=== PATIENT | female | born 1950 | race Caucasian/White ===

== ENCOUNTER → 2019-07-18 13:52 | Outpatient (CLI) | payer MEDICARE, OTHER, SELFPAY ==
[2019-07-18 14:11] LABS: RBC Urine None Seen (0-5/HPF); WBC Urine None Seen (0-5/HPF)
[2019-07-18 15:35] LABS: Appearance Urine UA CLEAR; Bilirubin Urine UA NEGATIVE (NEGATIVE); Color Urine UA YELLOW; Glucose Urine UA NEGATIVE (Negative); Ketones Urine UA NEGATIVE (NEGATIVE); Leukocyte Esterase Urine UA NEGATIVE (NEGATIVE); Nitrite Urine UA NEGATIVE (Negative); Occult Blood Urine UA NEGATIVE (Negative); Protein Urine UA NEGATIVE (Negative); Urobilinogen Urine UA 0.2 E.U./dL (0.2)
[2019-07-18 15:39] LABS: pH Urine UA 5.5 (4.5-8.0)
[2019-07-18 15:52] LABS: Bacteria Urine Occasional (0-1); Culture Indicated Urine Cult Not Indicated
== END ==
PROVIDERS: PCP Nurse Practitioner; Referring Provider Nurse Practitioner; Visit Provider Nurse Practitioner
DX: R32 Unspecified urinary incontinence (principal)
CPT/HCPCS: 81001

== ENCOUNTER → 2019-09-27 10:14 | Outpatient (CLI) | payer MEDICARE, OTHER, SELFPAY ==
[2019-09-27 11:03] LABS: Alanine Aminotransferase 12 IU/L (<35); Albumin 3.8 g/dL (3.5-5.0); Albumin Globulin Ratio 1.6 (1.0-2.8); Alkaline Phosphatase 50 U/L (38-126); Aspartate Aminotransferase 25 IU/L (14-36); BUN Creatinine Ratio 22.5 (6-22); Bilirubin Total 0.5 mg/dL (0.2-1.3); Blood Urea Nitrogen 20 mg/dL (7-17); Calcium 9.9 mg/dL (8.4-10.2); Carbon Dioxide 31 mmol/L (22-32); Chloride 104 mmol/L (98-107); Cholesterol 184 mg/dL (140-199); Estimated Glomerular Filt Rate > 60.0 mL/min (>60); Globulin 2.4 g/dL (1.7-4.1); Glucose 101 mg/dL (80-110); HDL Cholesterol 73 mg/dL (40-60); HEMOLYSIS < 15 (0-50); LDL Cholesterol Calculated 89 mg/dL (<100); Sodium 138 mmol/L (137-145); Total Protein 6.2 g/dL (6.3-8.2); Triglycerides 111 mg/dL (35-150)
[2019-09-27 11:31] LABS: Thyroid Stimulating Hormone 0.388 uIU/mL (0.47-4.68)
[2019-09-27 11:53] LABS: Hep C Virus Ab w/Reflex Quant NEGATIVE s/c (NEGATIVE)
== END ==
PROVIDERS: PCP Nurse Practitioner; Referring Provider Nurse Practitioner; Visit Provider Nurse Practitioner
DX: E03.9 Hypothyroidism, unspecified (principal); F03.90 Unspecified dementia, unspecified severity, without behavioral disturbance, psychotic disturbance, mood disturbance, and anxiety; F32.2 Major depressive disorder, single episode, severe without psychotic features; F41.9 Anxiety disorder, unspecified; I10 Essential (primary) hypertension; J45.909 Unspecified asthma, uncomplicated; N39.41 Urge incontinence; R35.0 Frequency of micturition; Z91.14 Patient's other noncompliance with medication regimen; Z11.59 Encounter for screening for other viral diseases; Z91.89 Other specified personal risk factors, not elsewhere classified
CPT/HCPCS: 36415; 80053; 80061; 84443; 86803

== ENCOUNTER → 2019-10-02 09:36 | Outpatient (ROUT) | payer MEDICARE, OTHER, SELFPAY ==
[2019-10-02 10:28] LABS: Alanine Aminotransferase 13 IU/L (<35); Albumin 3.8 g/dL (3.5-5.0); Albumin Globulin Ratio 1.5 (1.0-2.8); Alkaline Phosphatase 50 U/L (38-126); Aspartate Aminotransferase 33 IU/L (14-36); BUN Creatinine Ratio 18.4 (6-22); Bilirubin Total 0.6 mg/dL (0.2-1.3); Blood Urea Nitrogen 16 mg/dL (7-17); Calcium 9.7 mg/dL (8.4-10.2); Carbon Dioxide 30 mmol/L (22-32); Chloride 104 mmol/L (98-107); Cholesterol 192 mg/dL (140-199); Estimated Glomerular Filt Rate > 60.0 mL/min (>60); Globulin 2.5 g/dL (1.7-4.1); Glucose 93 mg/dL (80-110); HDL Cholesterol 69 mg/dL (40-60); HEMOLYSIS < 15 (0-50); LDL Cholesterol Calculated 102 mg/dL (<100); Potassium 3.7 mmol/L (3.4-5.1); Sodium 139 mmol/L (137-145); Total Protein 6.3 g/dL (6.3-8.2); Triglycerides 104 mg/dL (35-150)
[2019-10-02 11:09] LABS: Thyroid Stimulating Hormone 0.541 uIU/mL (0.47-4.68)
== END ==
PROVIDERS: PCP Nurse Practitioner; Visit Provider Nurse Practitioner
DX: F03.90 Unspecified dementia, unspecified severity, without behavioral disturbance, psychotic disturbance, mood disturbance, and anxiety (principal); E03.9 Hypothyroidism, unspecified; F32.2 Major depressive disorder, single episode, severe without psychotic features; F41.9 Anxiety disorder, unspecified; J45.909 Unspecified asthma, uncomplicated; I10 Essential (primary) hypertension; N39.41 Urge incontinence; R35.0 Frequency of micturition; Z91.14 Patient's other noncompliance with medication regimen; Z91.89 Other specified personal risk factors, not elsewhere classified
CPT/HCPCS: 36415; 80053; 80061; 84443

== ENCOUNTER → 2020-01-01 07:53 | Outpatient (ROUT) | payer MEDICARE, OTHER, SELFPAY ==
[2020-01-01 09:32] LABS: Thyroid Stimulating Hormone 1.58 uIU/mL (0.47-4.68)
== END ==
PROVIDERS: PCP Nurse Practitioner; Visit Provider Nurse Practitioner
DX: E03.9 Hypothyroidism, unspecified (principal); F32.2 Major depressive disorder, single episode, severe without psychotic features; F41.9 Anxiety disorder, unspecified
CPT/HCPCS: 36415; 84443

== ENCOUNTER 2020-09-21 10:55 | Emergency (ER) | payer MEDICARE, OTHER, SELFPAY ==
[2020-09-21] VITALS (9 sets, daily range): BP systolic 122–184; BP diastolic 61–80; PULSE 64–86; RESP 13–16; TEMP 36.5; O2SAT 88–100
--- NOTE | 2020-09-21 11:15 | DI.CT.S_ITS ---
PROCEDURE: CT HEAD/BRAIN WO CON INDICATIONS: confusion TECHNIQUE: Noncontrast 4.5 mm thick angled axial sections acquired from the foramen magnum to the vertex, with coronal and sagittal reformats. For radiation dose reduction, the following was used: automated exposure control, adjustment of mA and/or kV according to patient size. COMPARISON: None. FINDINGS: Image quality: Excellent. CSF spaces: Basal cisterns are patent. No extra-axial fluid collections. The ventricles are symmetric in size and shape. Brain: No intracranial bleeds or masses. There is cerebral volume loss for age, with resultant ventricular and sulcal prominence. There are periventricular and deep white matter chronic small vessel ischemic changes. There is intracranial internal carotid artery atherosclerosis. Skull and face: Calvarium and visualized facial bones appear intact, without suspicious lesions. Sinuses: Visualized sinuses and mastoids are clear. IMPRESSION: Noncontrast head CT within normal limits for age. If there is strong clinical suspicion for an acute stroke, please consider a brain MRI for further evaluation, as it is more sensitive (assuming that there is no contraindication to MRI). Dictated by: Adalid Carolina M.D. on 09/21/2020 at 10:44 Approved by: Adalid Carolina M.D. on 09/21/2020 at 10:45
[2020-09-21] MEDS: SODIUM CHLORIDE 0.9% 1,000 ML 150 ML IV (11:32)
[2020-09-21 11:35] LABS: Add Manual Diff / Slide Review NO; Basophils Absolute Auto 100 /uL (0-100); Basophils Percent Auto 1.2 % (0-2); Eosinophils Absolute Auto 100 /uL (0-450); Eosinophils Percent Auto 1.5 % (2-4); Hematocrit 38.9 % (36-46); Lymphocytes Absolute Auto 1900 /uL (1100-4500); Lymphocytes Percent Auto 31.5 % (25-40); Mean Corpuscular HGB Conc 33.5 % (30-36); Mean Corpuscular Hemoglobin 30.3 PG (26-34); Mean Corpuscular Volume 90.6 fL (80-100); Monocytes Absolute Auto 500 /uL (0-900); Monocytes Percent Auto 8.5 % (3-14); Neutrophils Absolute Auto 3400 /uL (1500-7000); Neutrophils Percent Auto 57.3 % (50-75); Platelet Count 179 X10^3/uL (150-400); Red Cell Distribution Width 12.8 % (11.6-14.8); White Blood Cell Count 5.9 X10^3/uL (4.5-11.0)
[2020-09-21 11:44] LABS: Lactate (Lactic Acid) 2.1 mmol/L (0.7-2.1)
[2020-09-21 11:46] LABS: Acetaminophen 12 ug/mL (10-30); Alanine Aminotransferase 12 IU/L (<35); Albumin 3.6 g/dL (3.5-5.0); Albumin Globulin Ratio 1.4 (1.0-2.8); Alkaline Phosphatase 38 U/L (38-126); Aspartate Aminotransferase 26 IU/L (14-36); BUN Creatinine Ratio 17.6 (6-22); Bilirubin Total 0.4 mg/dL (0.2-1.3); Blood Urea Nitrogen 18 mg/dL (7-17); Calcium 9.6 mg/dL (8.4-10.2); Carbon Dioxide 29 mmol/L (22-32); Chloride 104 mmol/L (98-107); Creatine Kinase 129 U/L (30-135); Estimated Glomerular Filt Rate 53.7 mL/min (>60); Ethanol (ETOH) < 10 mg/dL; Globulin 2.5 g/dL (1.7-4.1); Glucose 118 mg/dL (80-110); HEMOLYSIS < 15 (0-50); Potassium 3.9 mmol/L (3.4-5.1); Salicylate < 1.0 mg/dL (<20); Sodium 138 mmol/L (137-145); Total Protein 6.1 g/dL (6.3-8.2)
[2020-09-21 11:57] LABS: Troponin I < 0.012 ng/mL (0.01-0.034)
[2020-09-21 12:00] LABS: CKMB % Relative Index 0.3 % (1.5-5.0); Creatine Kinase MB 0.36 ng/mL (<2.37)
--- NOTE | 2020-09-21 12:00 | PC.NURSE ---
Pt has severe dementia so it is difficult to evaluate the pt's symptoms. Pt states there is no changes or abnormal symptoms that the pt is reporting.
[2020-09-21 12:02] LABS: Procalcitonin 0.06 ng/mL (<0.5); Prolactin 26.3 ng/mL (3.0-18.6)
[2020-09-21 12:16] LABS: Thyroid Stimulating Hormone 1.24 uIU/mL (0.47-4.68)
[2020-09-21 12:29] LABS: RBC Urine None Seen (0-5/HPF)
[2020-09-21 12:35] LABS: Appearance Urine UA CLOUDY; Bilirubin Urine UA NEGATIVE (NEGATIVE); Color Urine UA YELLOW; Glucose Urine UA NEGATIVE (Negative); Ketones Urine UA NEGATIVE (NEGATIVE); Leukocyte Esterase Urine UA 1+ (NEGATIVE); Nitrite Urine UA NEGATIVE (Negative); Occult Blood Urine UA NEGATIVE (Negative); Protein Urine UA 1+ (Negative); Urobilinogen Urine UA 0.2 E.U./dL (0.2)
[2020-09-21 12:36] LABS: UR Morphine/Opiate cutoff 300 Negative (Negative); Ur Creatinine Normal (Normal); Ur Specific Gravity Normal (Normal); Urine Amphetamines Negative (Negative); Urine Barbiturates Negative (Negative); Urine Benzodiazepines Negative (Negative); Urine Cocaine Negative (Negative); Urine MDMA Negative (Negative); Urine Methadone Negative (Negative); Urine Methamphetamines Negative (Negative); Urine Oxycodone Negative (Negative); Urine Phencyclidine Negative (Negative); Urine Tetrahydrocannabinol Negative (Negative); Urine Tricyclic Antidepressant Negative (Negative); Urine pH Normal (Normal)
[2020-09-21 12:37] LABS: pH Urine UA 7.5 (4.5-8.0)
[2020-09-21 12:43] LABS: Bacteria Urine Many (>30); Culture Indicated Urine Specimen Cultured; WBC Urine 5-10/HPF (0-5/HPF)
--- NOTE | 2020-09-21 12:46 | ED.DIZZY ---
HPI - Dizziness General Chief Complaint: Dizziness Stated Complaint: Hypotension, confused, dizziness Time Seen by Provider: 09/21/20 11:13 Source: EMS Mode of arrival: EMS History of Present Illness HPI Narrative: 69-year-old female with history of anxiety and dementia presenting with increased confusion and possibly dizziness from [facility]. It sounds as though symptoms started around 9:00 a.m.. Patient is awake and alert and able to follow commands and answer some questions. He is having some mild chest discomfort. She denies headache numbness or tingling. She has no shortness of breath. No abdominal pain nausea vomiting. Patient is overall a difficult historian. She is currently afebrile. Staff states not at baseline. Related Data Home Medications Medication Instructions Recorded Confirmed acetaminophen 325 mg capsule 650 mg PO Q4H PRN 01/23/20 01/23/20 magnesium hydroxide 400 mg/5 mL 30 ml PO DAILY PRN ml 01/23/20 01/23/20 oral suspension (Milk of Magnesia) Previous Rx's Medication Instructions Recorded albuterol sulfate 90 mcg/actuation 2 puff INHALATION Q4-6H PRN #6.7 10/30/19 aerosol inhaler (Ventolin HFA) gram aspirin 81 mg tablet,delayed 81 mg PO DAILY #90 tab 10/30/19 release (Adult Low Dose Aspirin) calcium carbonate 600 mg calcium 600 mg PO DAILY #180 tab 10/30/19 (1,500 mg) tablet (Calcium) cholecalciferol (vitamin D3) 25 25 mcg PO DAILY #180 cap 10/30/19 mcg (1,000 unit) capsule lisinopril 2.5 mg tablet 2.5 mg PO DAILY #90 tab 10/30/19 loratadine 10 mg tablet 10 mg PO DAILY #90 tab 10/30/19 (Allerclear) memantine 10 mg tablet 10 mg PO BID #180 tab 10/30/19 omeprazole 20 mg capsule,delayed 20 mg PO DAILY #90 cap 10/30/19 release oxybutynin chloride 5 mg 5 mg PO DAILY #90 tab 10/30/19 tablet,extended release 24 hr donepezil 10 mg tablet 10 mg PO DAILY #90 tab 01/03/20 acetaminophen 325 mg capsule 650 mg PO DAILY #180 cap 01/23/20 levothyroxine 75 mcg tablet 75 mcg PO DAILY #90 tab 01/31/20 escitalopram oxalate 20 mg tablet 20 mg PO DAILY #30 tab 09/05/20 trazodone 50 mg tablet 50 mg PO DAILY #90 tab 09/10/20 nitrofurantoin 100 mg PO Q12H 5 Days #10 cap 09/21/20 monohydrate/macrocrystals 100 mg capsule (Macrobid) Allergies Allergy/AdvReac Type Severity Reaction Status Date / Time Penicillins Allergy Mild Verified 09/21/20 11:03 Review of Systems Constitutional Constitutional: Denies fever(s) ENT Ears, Nose, Mouth, and Throat: Reports dizziness Cardiovascular Cardiovascular: Reports chest pain, Denies edema and Denies leg edema Respiratory Respiratory: Denies cough Gastrointestinal Gastrointestinal: Denies abdominal pain, Denies nausea and Denies vomiting Musculoskeletal Musculoskeletal: Denies deformity Integumentary/Breasts Skin/Breast: Denies rash Neurologic Neurologic: Reports confusion, Reports dizziness and Reports memory loss Psychiatric Psychiatric: Reports confusion and Reports memory loss Patient History Medical History (Updated 09/21/20 @ 13:08 by Kaylene Odell DO) Advanced care planning/counseling discussion Allergies Anxiety Asthma Carpal tunnel syndrome Cataracts, bilateral CPAP (continuous positive airway pressure) dependence Dementia (~2016) Depression Encounter for HCV screening test for high risk patient Facial numbness FH: GRAY-BSO (total abdominal hysterectomy and bilateral salpingo-oophorectomy) GERD (gastroesophageal reflux disease) Headache History of urinary incontinence Hypothyroidism 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 Mild diastolic dysfunction Noncompliance with CPAP treatment Restless leg syndrome Retinal detachment (~2014) Sleep apnea TIA (transient ischemic attack) (~2014) Urinary frequency Weight loss observed on examination Surgical History H/O eye surgery Family History Father History of heart disease Hypertension Mother History of heart disease Hypertension Sister Diabetes mellitus Hypothyroidism Social History Smoking Status: Never smoker Smoking Status: Never smoker alcohol intake frequency: holidays/special occasions only Substance Use Type: does not use Exam Initial Vital Signs Initial Vital Signs: Vital Signs Temperature 97.7 F 09/21/20 11:03 Pulse Rate 85 09/21/20 11:03 Respiratory Rate 13 09/21/20 11:03 Blood Pressure 122/61 09/21/20 11:03 Pulse Oximetry 96 07/24/21 11:03 GENERAL: Alert pleasantly confused 69-year-old female HEENT: Head atraumatic,EOMI, pupils reactive, face symmetric, moist mucous membranes CARDIOVASCULAR: Regular rate and rhythm without murmurs, rubs or gallops. RESPIRATORY: Breath sounds equal bilaterally, no wheezes rales or rhonchi. ABDOMEN: Soft, nontender. Normoactive bowel sounds all 4 quadrants. No guarding or rebound. EXTREMITIES: Normal range of motion, no clubbing or edema. Neurovascularly intact NEUROLOGICAL: Alert and oriented x1. Print Operator strength equal bilaterally good [id number] lower extremity strength equal SKIN: Warm, dry, no laceration, no petechiae, no rashes or lesions. Course Orders Ordered: ED Orders 09/21/20 11:09 Acetaminophen Stat Complete Blood Count AUTO DIFF Stat Comprehensive Metabolic Panel Stat Ethanol (ETOH) Stat Lactate (Lactic Acid) Stat Procalcitonin Stat Prolactin Stat Salicylate Stat Thyroid Stimulating Hormone Stat Troponin & CK Cardiac Panel Stat 09/21/20 11:14 EKG-12 Lead Stat 09/21/20 11:15 CT head/brain wo con Stat 09/21/20 11:49 Urinalysis and Microscopic Stat Urine Culture Stat Urine Drug Screen, Rapid Stat 09/21/20 12:10 Blood Culture Stat Discontinued Medications Sodium Chloride (Normal Saline 0.9%) 1,000 mls @ 150 mls/hr IV CONT CHAUNCEY Last Infusion: 09/21/20 13:46 Dose: 0 mls/hr Documented by: Admin: 09/21/20 11:32 Dose: 150 mls/hr Documented by: MARIAN Nitrofurantoin Macrocrystals (Nitrofurantoin Er 100 Mg Capsule) 100 mg PO NOW ONE Stop: 09/21/20 13:10 Last Admin: 09/21/20 13:20 Dose: 100 mg Documented by: [email or web address] Vital Signs Vital signs: Vital Signs - 8 hr 09/21/20 11:03 09/21/20 11:04 09/21/20 11:30 Temperature 97.7 F Pulse Rate 85 86 71 Respiratory Rate 13 Blood Pressure 122/61 Pulse Oximetry 96 100 99 09/21/20 11:49 09/21/20 12:00 09/21/20 12:30 Temperature Pulse Rate 74 64 64 Respiratory Rate 14 Blood Pressure 176/72 H 160/70 H 176/80 H Pulse Oximetry 99 98 98 09/21/20 13:00 09/21/20 13:31 09/21/20 13:34 Temperature Pulse Rate 68 72 Respiratory Rate 16 14 Blood Pressure 184/74 H 154/72 H Pulse Oximetry 99 88 L 96 MDM - Dizziness Lab Data Result diagrams: 09/21/20 11:09 09/21/20 11:09 Labs: Lab Results 09/21/20 09/21/20 09/21/20 Range/Units 11:09 11:09 11:09 WBC 5.9 (4.5-11.0) X10^3/uL RBC 4.30 (4.0-5.2) X10^6/uL Hgb 13.0 (12.0-16.0) g/dL Hct 38.9 (36-46) % MCV 90.6 (80-100) fL MCH 30.3 (26-34) PG MCHC 33.5 (30-36) % RDW 12.8 (11.6-14.8) % Plt Count 179 (150-400) X10^3/uL Neut % (Auto) 57.3 (50-75) % Lymph % (Auto) 31.5 (25-40) % Campbell % (Auto) 8.5 (3-14) % Eos % (Auto) 1.5 L (2-4) % Baso % (Auto) 1.2 (0-2) % Neut # (Auto) 3400 (7680-4839) /uL Lymph # (Auto) 1900 (6022-4028) /uL Campbell # (Auto) 500 (0-900) /uL Eos # (Auto) 100 (0-450) /uL Baso # (Auto) 100 (0-100) /uL Sodium 138 (137-145) mmol/L Potassium 3.9 (3.4-5.1) mmol/L Chloride 104 (98-107) mmol/L Carbon Dioxide 29 (22-32) mmol/L BUN 18 H (7-17) mg/dL Creatinine 1.02 (0.52-1.04) mg/dL Estimated GFR 53.7 L (>60) mL/min BUN/Creatinine Ratio 17.6 (6-22) Glucose 118 H (80-110) mg/dL Lactate 2.1 (0.7-2.1) mmol/L Calcium 9.6 (8.4-10.2) mg/dL Total Bilirubin 0.4 (0.2-1.3) mg/dL AST 26 (14-36) IU/L ALT 12 (<35) IU/L Alkaline Phosphatase 38 (38-126) U/L Total Creatine Kinase 129 (30-135) U/L CK-MB (CK-2) 0.36 (<2.37) ng/mL CK-MB (CK-2) Rel Index 0.3 L (1.5-5.0) % Troponin I < 0.012 (0.01-0.034) ng/mL Total Protein 6.1 L (6.3-8.2) g/dL Albumin 3.6 (3.5-5.0) g/dL Globulin 2.5 (1.7-4.1) g/dL Albumin/Globulin Ratio 1.4 (1.0-2.8) Procalcitonin 0.06 (<0.5) ng/mL TSH (0.47-4.68) uIU/mL Prolactin 26.3 H (3.0-18.6) ng/mL Urine Color Urine Appearance Urine pH (4.5-8.0) Ur Specific [place] (1.000-1.035) Urine Protein (Negative) Urine Glucose (UA) (Negative) g/dL Urine Ketones (NEGATIVE) Urine Occult Blood (Negative) Urine Nitrate (Negative) Urine Bilirubin (NEGATIVE) Urine Urobilinogen (0.2) E.U./dL Ur Leukocyte Esterase (NEGATIVE) Urine RBC (0-5/HPF) Urine WBC (0-5/HPF) Urine Bacteria (None) Ur Culture Indicated? Salicylates < 1.0 (<20) mg/dL U Opiates 300ng/mL cut (Negative) Ur Oxycodone Screen (Negative) Urine Methadone Screen (Negative) Acetaminophen 12 (10-30) ug/mL Ur Barbiturates Screen (Negative) U Tricyclic Antidepress (Negative) Ur Phencyclidine Scrn (Negative) Ur Amphetamines Screen (Negative) U Methamphetamines Scrn (Negative) Ur MDMA Scrn (Ecstasy) (Negative) U Benzodiazepines Scrn (Negative) Urine Cocaine Screen (Negative) U Marijuana (THC) Screen (Negative) Ethyl Alcohol < 10 ( - 10) mg/dL 09/21/20 09/21/20 09/21/20 Range/Units 11:09 11:49 11:49 WBC (4.5-11.0) X10^3/uL RBC (4.0-5.2) X10^6/uL Hgb (12.0-16.0) g/dL Hct (36-46) % MCV (80-100) fL MCH (26-34) PG MCHC (30-36) % RDW (11.6-14.8) % Plt Count (150-400) X10^3/uL Neut % (Auto) (50-75) % Lymph % (Auto) (25-40) % Campbell % (Auto) (3-14) % Eos % (Auto) (2-4) % Baso % (Auto) (0-2) % Neut # (Auto) (9173-6187) /uL Lymph # (Auto) (3437-5956) /uL Campbell # (Auto) (0-900) /uL Eos # (Auto) (0-450) /uL Baso # (Auto) (0-100) /uL Sodium (137-145) mmol/L Potassium (3.4-5.1) mmol/L Chloride (98-107) mmol/L Carbon Dioxide (22-32) mmol/L BUN (7-17) mg/dL Creatinine (0.52-1.04) mg/dL Estimated GFR (>60) mL/min BUN/Creatinine Ratio (6-22) Glucose (80-110) mg/dL Lactate (0.7-2.1) mmol/L Calcium (8.4-10.2) mg/dL Total Bilirubin (0.2-1.3) mg/dL AST (14-36) IU/L ALT (<35) IU/L Alkaline Phosphatase (38-126) U/L Total Creatine Kinase (30-135) U/L CK-MB (CK-2) (<2.37) ng/mL CK-MB (CK-2) Rel Index (1.5-5.0) % Troponin I (0.01-0.034) ng/mL Total Protein (6.3-8.2) g/dL Albumin (3.5-5.0) g/dL Globulin (1.7-4.1) g/dL Albumin/Globulin Ratio (1.0-2.8) Procalcitonin (<0.5) ng/mL TSH 1.24 (0.47-4.68) uIU/mL Prolactin (3.0-18.6) ng/mL Urine Color Yellow Urine Appearance Cloudy Urine pH 7.5 (4.5-8.0) Ur Specific [place] 1.010 (1.000-1.035) Urine Protein 1+ H (Negative) Urine Glucose (UA) Negative (Negative) g/dL Urine Ketones Negative (NEGATIVE) Urine Occult Blood Negative (Negative) Urine Nitrate Negative (Negative) Urine Bilirubin Negative (NEGATIVE) Urine Urobilinogen 0.2 (0.2) E.U./dL Ur Leukocyte Esterase 1+ H (NEGATIVE) Urine RBC None seen (0-5/HPF) Urine WBC 5-10/hpf H (0-5/HPF) Urine Bacteria Many (>30) H (None) Ur Culture Indicated? Specimen cultured Salicylates (<20) mg/dL U Opiates 300ng/mL cut Negative (Negative) Ur Oxycodone Screen Negative (Negative) Urine Methadone Screen Negative (Negative) Acetaminophen (10-30) ug/mL Ur Barbiturates Screen Negative (Negative) U Tricyclic Antidepress Negative (Negative) Ur Phencyclidine Scrn Negative (Negative) Ur Amphetamines Screen Negative (Negative) U Methamphetamines Scrn Negative (Negative) Ur MDMA Scrn (Ecstasy) Negative (Negative) U Benzodiazepines Scrn Negative (Negative) Urine Cocaine Screen Negative (Negative) U Marijuana (THC) Screen Negative (Negative) Ethyl Alcohol ( - 10) mg/dL Point of Care Testing Glucose POC 118 Urine Dip Bedside Urine Glucose Negative Bedside Urine Bilirubin - Negative Bedside Urine Ketone - Negative Urine Specific [place] 1.015 Bedside Urine Occult Blood - Negative Bedside Urine pH 7.0 Bedside Urine Protein + 30 Bedside Urine Urobilinogen - Negative Bedside Urine Nitrite - Negative Bedside Urine Leukocytes + [address] scan - head: Radiologist's Impression: PROCEDURE: CT HEAD/BRAIN WO CON INDICATIONS: confusion TECHNIQUE: Noncontrast 4.5 mm thick angled axial sections acquired from the foramen magnum to the vertex, with coronal and sagittal reformats. For radiation dose reduction, the following was used: automated exposure control, adjustment of mA and/or kV according to patient size. COMPARISON: None. FINDINGS: Image quality: Excellent. CSF spaces: Basal cisterns are patent. No extra-axial fluid collections. The ventricles are symmetric in size and shape. Brain: No intracranial bleeds or masses. There is cerebral volume loss for age, with resultant ventricular and sulcal prominence. There are periventricular and deep white matter chronic small vessel ischemic changes. There is intracranial internal carotid artery atherosclerosis. Skull and face: Calvarium and visualized facial bones appear intact, without suspicious lesions. Sinuses: Visualized sinuses and mastoids are clear. IMPRESSION: Noncontrast head CT within normal limits for age. If there is strong clinical suspicion for an acute stroke, please consider a brain MRI for further evaluation, as it is more sensitive (assuming that there is no contraindication to MRI). Dictated by: Adalid Carolina M.D. on 09/21/2020 at 10:44 ECG Data Interpretation: Normal sinus rhythm rate 79 OR interval 146 QRS 80 QTC 450 baseline artifact noted no ST changes MDM Narrative Medical decision making narrative: Patient from my standpoint is neurologically intact. She has baseline confusion. Workup does confirm UTI. At this time she does not appear septic. She has no focal neurologic deficit. He ambulates in the ED without any difficulty Discharge Plan Departure Patient Disposition: Home Clinical Impression: Acute UTI Instructions: DI for Urinary Tract Infection (UTI) Activity Restrictions/Additional Instructions: *You have been diagnosed with UTI *What to do: Blood work and CT scan are overall reassuring. *Continue to take medications as directed Macrobid 100 mg twice a day for 5 days *Follow up with your primary care provider in 2-3 days *Return to ER if you should have increasing confusion, fever greater than 100.4, increased weakness, [or] any new, worsening or concerning symptoms Prescriptions: New nitrofurantoin monohyd/m-cryst [Macrobid] 100 mg capsule 100 mg PO Q12H 5 Days Qty: 10 RF: 0 No Action donepezil 10 mg tablet 10 mg PO DAILY Qty: 90 RF: 3 levothyroxine 75 mcg tablet 75 mcg PO DAILY Qty: 90 RF: 3 escitalopram oxalate 20 mg tablet 20 mg PO DAILY Qty: 30 RF: 0 trazodone 50 mg tablet 50 mg PO DAILY Qty: 90 RF: 3 acetaminophen 325 mg capsule 650 mg PO Q4H PRN (Reason: pain) RF: 0 magnesium hydroxide [Milk of Magnesia] 400 mg/5 mL suspension 30 ml PO DAILY PRNRF: 0 acetaminophen 325 mg capsule 650 mg PO DAILY Qty: 180 RF: 3 albuterol sulfate [Ventolin HFA] 90 mcg/actuation HFA aerosol inhaler 2 puff INHALATION Q4-6H PRN (Reason: shortness of breath or wheezing) Qty: 6.7 RF: 6 lisinopril 2.5 mg tablet 2.5 mg PO DAILY Qty: 90 RF: 3 loratadine [Allerclear] 10 mg tablet 10 mg PO DAILY Qty: 90 RF: 3 memantine 10 mg tablet 10 mg PO BID Qty: 180 RF: 3 omeprazole 20 mg capsule,delayed release(DR/EC) 20 mg PO DAILY Qty: 90 RF: 3 oxybutynin chloride 5 mg tablet extended release 24hr 5 mg PO DAILY Qty: 90 RF: 3 aspirin [Adult Low Dose Aspirin] 81 mg tablet,delayed release (DR/EC) 81 mg PO DAILY Qty: 90 RF: 3 calcium carbonate [Calcium 600] 600 mg calcium (1,500 mg) tablet 600 mg PO DAILY Qty: 180 RF: 3 cholecalciferol (vitamin D3) 25 mcg (1,000 unit) capsule 25 mcg PO DAILY Qty: 180 RF: 3 Referrals: Yvette Jones ARNP [Primary Care Provider] -
[2020-09-21 13:20] LABS: Reflexed Lactate in 2 Hours Y
[2020-09-21] MEDS: NITROFURANTOIN ER 100 MG CAPSULE PO (13:20)
== END 2020-09-21 13:56 | disposition home or self-care (01) ==
PROVIDERS: Emergency Provider Emergency Medicine; PCP Nurse Practitioner
DX: N39.0 Urinary tract infection, site not specified (principal); R07.9 Chest pain, unspecified; R41.0 Disorientation, unspecified; F03.90 Unspecified dementia, unspecified severity, without behavioral disturbance, psychotic disturbance, mood disturbance, and anxiety
CPT/HCPCS: 36415; 70450; 80053; 80305; 80320; 80329; 81001; 81003; 82550; 82553; 82962; 83605; 84145; 84146; 84443; 84484; 85025; 87040; 87077; 87086; 87186; 93005; 93010; 96360; 96361; 99284; G0480

== ENCOUNTER → 2021-01-13 11:01 | Outpatient (CLI) | payer MEDICARE, OTHER, SELFPAY ==
[2021-01-13 11:41] LABS: Hematocrit 34.8 % (36-46); Hemoglobin 11.8 g/dL (12.0-16.0); Mean Corpuscular HGB Conc 33.7 % (30-36); Mean Corpuscular Hemoglobin 30.5 PG (26-34); Mean Corpuscular Volume 90.4 fL (80-100); Platelet Count 226 X10^3/uL (150-400); Red Blood Cell Count 3.86 X10^6/uL (4.0-5.2); Red Cell Distribution Width 13.2 % (11.6-14.8); White Blood Cell Count 5.9 X10^3/uL (4.5-11.0)
[2021-01-13 12:06] LABS: Alanine Aminotransferase 11 IU/L (<35); Albumin 3.7 g/dL (3.5-5.0); Albumin Globulin Ratio 1.6 (1.0-2.8); Alkaline Phosphatase 36 U/L (38-126); Aspartate Aminotransferase 22 IU/L (14-36); BUN Creatinine Ratio 13.5 (6-22); Bilirubin Total 0.3 mg/dL (0.2-1.3); Blood Urea Nitrogen 17 mg/dL (7-17); Calcium 9.7 mg/dL (8.4-10.2); Carbon Dioxide 31 mmol/L (22-32); Chloride 102 mmol/L (98-107); Globulin 2.3 g/dL (1.7-4.1); Glucose 134 mg/dL (80-110); HEMOLYSIS < 15 (0-50); Magnesium 1.9 mg/dL (1.6-2.3); Potassium 4.1 mmol/L (3.4-5.1); Sodium 139 mmol/L (137-145)
[2021-01-13 12:31] LABS: Thyroid Stimulating Hormone 1.28 uIU/mL (0.47-4.68)
== END ==
PROVIDERS: PCP Nurse Practitioner; Referring Provider Nurse Practitioner; Visit Provider Nurse Practitioner
DX: F03.90 Unspecified dementia, unspecified severity, without behavioral disturbance, psychotic disturbance, mood disturbance, and anxiety (principal); I10 Essential (primary) hypertension; R35.0 Frequency of micturition; I51.9 Heart disease, unspecified; Z87.898 Personal history of other specified conditions; R29.6 Repeated falls; N39.0 Urinary tract infection, site not specified; R41.0 Disorientation, unspecified
CPT/HCPCS: 36415; 80053; 83735; 84443; 85027

== ENCOUNTER → 2021-01-15 13:05 | Outpatient (ROUT) | payer MEDICARE, OTHER, SELFPAY ==
[2021-01-15 15:34] LABS: Appearance Urine UA CLOUDY; Bilirubin Urine UA NEGATIVE (NEGATIVE); Color Urine UA YELLOW; Glucose Urine UA NEGATIVE (Negative); Ketones Urine UA NEGATIVE (NEGATIVE); Leukocyte Esterase Urine UA 1+ (NEGATIVE); Nitrite Urine UA POSITIVE (Negative); Occult Blood Urine UA NEGATIVE (Negative); Protein Urine UA NEGATIVE (Negative); Urobilinogen Urine UA 0.2 E.U./dL (0.2)
[2021-01-15 15:42] LABS: RBC Urine None Seen (0-5/HPF); Squamous Epithelial Cell Urine 1-5 /HPF (0-5/HPF); WBC Urine 10-30/HPF (0-5/HPF); pH Urine UA 5.5 (4.5-8.0)
[2021-01-15 15:43] LABS: Amorphous Sediment Urine 1+; Bacteria Urine Many (>30); Culture Indicated Urine Specimen Cultured; Renal Epithelial Cells Urine 0-1/HPF (0-1/HPF)
== END ==
PROVIDERS: PCP Nurse Practitioner; Visit Provider Nurse Practitioner
DX: R35.0 Frequency of micturition (principal); I10 Essential (primary) hypertension; I51.9 Heart disease, unspecified; F03.90 Unspecified dementia, unspecified severity, without behavioral disturbance, psychotic disturbance, mood disturbance, and anxiety; Z87.898 Personal history of other specified conditions; R29.6 Repeated falls; N39.0 Urinary tract infection, site not specified; R41.0 Disorientation, unspecified
CPT/HCPCS: 81001; 87077; 87086; 87186

== ENCOUNTER 2021-02-12 15:59 | Emergency (ER) | payer MEDICARE, OTHER, SELFPAY ==
[2021-02-12 16:00] VITALS: TEMP 36.9
[2021-02-12 16:17] VITALS: BP 143/63; PULSE 84; O2SAT 99
[2021-02-12 16:22] VITALS: BP 151/66; PULSE 85; RESP 15; O2SAT 99
--- NOTE | 2021-02-12 17:04 | ED.RECABL ---
HPI - Recheck/Abnormal Lab/Rx General Chief Complaint: Recheck/Abnormal Lab/Rx Stated Complaint: rectal prolapse Time Seen by Provider: 02/12/21 16:11 Source: patient Mode of arrival: Ambulatory History of Present Illness HPI narrative: Patient is a 70-year-old female. ReportedHistory of dementia. Is here for rectal prolapse. Patient unable to provide any HPI. I am unaware of circumstances that led to the rectal prolapse. No note of prior history of rectal prolapse in her problem list. Related Data Home Medications Medication Instructions Recorded Confirmed acetaminophen 325 mg capsule 650 mg PO Q4H PRN 01/23/20 01/13/21 Previous Rx's Medication Instructions Recorded albuterol sulfate 90 mcg/actuation 2 puff INHALATION Q4-6H PRN #6.7 10/30/19 aerosol inhaler (Ventolin HFA) gram aspirin 81 mg tablet,delayed 81 mg PO DAILY #90 tab 10/30/19 release (Adult Low Dose Aspirin) trazodone 50 mg tablet 50 mg PO DAILY #90 tab 09/10/20 calcium carbonate 600 mg calcium 600 mg PO DAILY #180 tab 10/04/20 (1,500 mg) tablet (Calcium) cholecalciferol (vitamin D3) 25 See Rx Instructions .ROUTE 10/04/20 mcg (1,000 unit) tablet (Vitamin .COMPLEX #180 tab D3) loratadine 10 mg tablet 10 mg PO DAILY #90 tab 10/04/20 (Allerclear) memantine 10 mg tablet 10 mg PO BID #180 tab 10/04/20 omeprazole 20 mg capsule,delayed 20 mg PO DAILY #90 cap 10/04/20 release escitalopram oxalate 20 mg tablet See Rx Instructions .ROUTE 11/05/20 .COMPLEX #90 tab magnesium hydroxide 400 mg/5 mL See Rx Instructions .ROUTE 11/21/20 oral suspension (Milk of Magnesia) .COMPLEX #473 ml acetaminophen 325 mg capsule 650 mg PO DAILY #180 cap 12/31/20 levothyroxine 75 mcg tablet 75 mcg PO DAILY #90 tab 12/31/20 Disabled Parking Permit See Rx Instructions .ROUTE 01/13/21 .COMPLEX #1 unit ciprofloxacin HCl 500 mg tablet 500 mg PO Q12H #14 tab 01/17/21 (Cipro) valacyclovir 1 gram tablet 1,000 mg PO BID #7 tab 01/27/21 Allergies Allergy/AdvReac Type Severity Reaction Status Date / Time Penicillins Allergy Mild Verified 02/12/21 16:04 Review of Systems Review of Systems ROS Unobtainable: Unobtainable due to mental condition Patient History Medical History Advanced care planning/counseling discussion Allergies Anxiety Asthma Carpal tunnel syndrome Cataracts, bilateral CPAP (continuous positive airway pressure) dependence Dementia (~2016) Depression Encounter for HCV screening test for high risk patient Facial numbness FH: GRAY-BSO (total abdominal hysterectomy and bilateral salpingo-oophorectomy) GERD (gastroesophageal reflux disease) Headache History of urinary incontinence Hypothyroidism 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 Mild diastolic dysfunction Noncompliance with CPAP treatment Restless leg syndrome Retinal detachment (~2014) Sleep apnea TIA (transient ischemic attack) (~2014) Urinary frequency Weight loss observed on examination Surgical History H/O eye surgery Family History Father History of heart disease Hypertension Mother History of heart disease Hypertension Sister Diabetes mellitus Hypothyroidism Social History Smoking Status: Never smoker Smoking Status: Never smoker alcohol intake frequency: holidays/special occasions only Substance Use Type: does not use Exam Initial Vital Signs Initial Vital Signs: Vital Signs Temperature 98.5 F 02/12/21 16:00 HENMT Head: normal to inspection and normocephalic GI Inspection: normal to inspection Palpation: soft Other: Patient does have a rectal prolapse. The mucosa is pink. Skin General: no rashes or lesions noted Extrem General: normal to inspection Course Vital Signs Vital signs: Vital Signs - 8 hr 02/12/21 16:00 02/12/21 16:17 02/12/21 16:22 Temperature 98.5 F Pulse Rate 84 85 Respiratory Rate 15 Blood Pressure 143/63 H 151/66 H Pulse Oximetry 99 99 02/12/21 17:16 Temperature Pulse Rate 89 Respiratory Rate 17 Blood Pressure 143/63 H Pulse Oximetry 99 MDM - Recheck/Abnormal Lab/Rx MDM Narrative Medical decision making narrative: The rectal prolapse was easily reduced in the emergency department. The mucosa was pink without any signs of dusky mucosa. Her abdomen is soft. Discharge back to her care facility with instructions that her primary doctor should be informed and potential referral to see General surgery. Discharge Plan Departure Patient Disposition: Home Clinical Impression: Rectal prolapse Instructions: DI for Rectal Prolapse Activity Restrictions/Additional Instructions: I recommend that her primary doctor be made aware of her rectal prolapse. This could potentially happen again and if it does she does need re-evaluated in the emergency department. If he continues to occur her she will need follow-up with General surgery. She can return to the emergency department for new or worsening symptoms. Prescriptions: No Action trazodone 50 mg tablet 50 mg PO DAILY Qty: 90 3RF Rx Instructions: Take 1 tablet at bedtime for depression/insomnia calcium carbonate [Calcium 600] 600 mg calcium (1,500 mg) tablet 600 mg PO DAILY Qty: 180 3RF Rx Instructions: Take 1 tab by mouth twice daily for prevention of osteoporosis memantine 10 mg tablet 10 mg PO BID Qty: 180 3RF Rx Instructions: Take 1 tablet twice daily for memory loratadine [Allerclear] 10 mg tablet 10 mg PO DAILY Qty: 90 3RF Rx Instructions: Take 1 tab daily for allergies. omeprazole 20 mg capsule,delayed release(DR/EC) 20 mg PO DAILY Qty: 90 3RF Rx Instructions: Take 1 tablet daily for heartburn cholecalciferol (vitamin D3) [Vitamin D3] 25 mcg (1,000 unit) tablet See Rx Instructions .ROUTE .COMPLEX Qty: 180 3RF Dose Instruction: TAKE (1) TABLET BY MOUTH TWICE DAILY. Rx Instructions: TAKE (1) TABLET BY MOUTH TWICE DAILY. escitalopram oxalate 20 mg tablet See Rx Instructions .ROUTE .COMPLEX Qty: 90 3RF Dose Instruction: TAKE 1 TABLET BY MOUTH ONCE DAILY. Rx Instructions: TAKE 1 TABLET BY MOUTH ONCE DAILY. magnesium hydroxide [Milk of Magnesia] 400 mg/5 mL suspension See Rx Instructions .ROUTE .COMPLEX Qty: 473 0RF Dose Instruction: TAKE 30ML BY MOUTH DAILY NEEDED FOR CONSTIPATION IF NO BOWEL MOVEMENT AFTER 4 DAYS. Rx Instructions: TAKE 30ML BY MOUTH DAILY NEEDED FOR CONSTIPATION IF NO BOWEL MOVEMENT AFTER 4 DAYS. levothyroxine 75 mcg tablet 75 mcg PO DAILY Qty: 90 1RF Rx Instructions: Take 1 tablet by mouth will on an empty stomach daily 30 minutes prior to eating. acetaminophen 325 mg capsule 650 mg PO DAILY Qty: 180 1RF Rx Instructions: Take 2 tabs by mouth routinely each morning, NTE 3 grams in 24 hours total ciprofloxacin HCl [Cipro] 500 mg tablet 500 mg PO Q12H Qty: 14 0RF Rx Instructions: Take 1 tab q 12 hours x7 days. valacyclovir 1 gram tablet 1,000 mg PO BID Qty: 7 0RF acetaminophen 325 mg capsule 650 mg PO Q4H PRN (Reason: pain) 0RF Label Comments: NTE 3 grams total in 24 hours Disabled Parking Permit See Rx Instructions .ROUTE .COMPLEX Qty: 1 0RF Rx Instructions: I find this patient to be medically disabled and qualify for disabled parking as indicated and signed on the accompanying disabled parking application for individuals. albuterol sulfate [Ventolin HFA] 90 mcg/actuation HFA aerosol inhaler 2 puff INHALATION Q4-6H PRN (Reason: shortness of breath or wheezing) Qty: 6.7 6RF Rx Instructions: 2 puffs inhaled every 4 hours as needed aspirin [Adult Low Dose Aspirin] 81 mg tablet,delayed release (DR/EC) 81 mg PO DAILY Qty: 90 3RF Rx Instructions: Take 1 tab by mouth daily for prevention of heart attack and stroke. Referrals: Yvette Jones ARNP [Primary Care Provider] -
[2021-02-12 17:16] VITALS: BP 143/63; PULSE 89; RESP 17; O2SAT 99
== END 2021-02-12 17:23 | disposition home or self-care (01) ==
PROVIDERS: Emergency Provider Emergency Medicine; PCP Nurse Practitioner
DX: K62.3 Rectal prolapse (principal)
CPT/HCPCS: 99281

== ENCOUNTER 2021-03-21 10:55 | Emergency (ER) | payer MEDICARE, OTHER, SELFPAY ==
[2021-03-21] VITALS (10 sets, daily range): BP systolic 141–159; BP diastolic 67–70; PULSE 67–127; RESP 16–28; TEMP 36.7; O2SAT 95–100
--- NOTE | 2021-03-21 10:55 | DI.CT.S_ITS ---
PROCEDURE: CT STROKE INDICATIONS: code stroke TECHNIQUE: Noncontrast 4.5 mm thick angled axial sections acquired from the foramen magnum to the vertex, with coronal reformats. For radiation dose reduction, the following was used: automated exposure control, adjustment of mA and/or kV according to patient size. COMPARISON: [facility], CT, CT HEAD/BRAIN WO [facility], 09/21/2020, 11:18. FINDINGS: Image quality: Excellent. CSF spaces: Basal cisterns are patent. No extra-axial fluid collections. The ventricles are symmetric in size and shape. Brain: No intracranial bleeds or masses. There is cerebral volume loss for age, with resultant ventricular and sulcal prominence. There are periventricular and deep white matter chronic small vessel ischemic changes. There is intracranial internal carotid artery atherosclerosis. Skull and face: Calvarium and visualized facial bones appear intact, without suspicious lesions. Sinuses: Visualized sinuses and mastoids are clear. IMPRESSION: No acute intracranial hemorrhage is seen. No acute intracranial process is seen. Note is made of age-appropriate brain parenchymal volume loss and chronic small vessel ischemic changes. Note: Case discussed by telephone with Dr. Contreras at 10:06 a.m. [place] time on March 21, 2021. This study fulfills neurological imaging criteria for inclusion or exclusion of acute stroke therapies based on available published neurological guidelines. Dictated by: Adalid Carolina M.D. on 03/21/2021 at 10:05 Approved by: Adalid Carolina M.D. on 03/21/2021 at 10:07
--- NOTE | 2021-03-21 10:56 | DI.CT.S_ITS ---
PROCEDURE: CT ANGIO HEAD AND NECK INDICATIONS: code stroke TECHNIQUE: Noncontrast images were performed earlier in the day and not repeated. After the administration of intravenous contrast, 1 mm thick sections acquired from the aortic arch through the [place] of [place]. Post-contrast 4.5 mm thick sections then re-acquired from the foramen magnum to the vertex. 3-dimensional mgrsxeb-dvqlgoams-otmqqfqdal (MIP) and/or volume rendering reformats were acquired of the central intracranial vasculature and neck separately. COMPARISON: [facility], CT, CT STROKE, 03/21/2021, 10:57. [facility], CT, CT HEAD/BRAIN WO [facility], 09/21/2020, 11:18. FINDINGS: Image quality: Excellent. BRAIN: CSF spaces: Ventricles are normal in size and shape. Basal cisterns are patent. No extra-axial fluid collections. Brain: No midline shift. No intracranial bleeds or masses. [place]-white matter interface appears intact. Skull and face: Calvarium and facial bones appear intact, without suspicious lesions. Orbits appear normal. Sinuses: Sinuses and mastoids are clear. HEAD CT ANGIOGRAPHY: Anterior circulation: Intracranial internal carotid arteries are normal in size and flow. The flow within the paired anterior cerebral arteries is normal and symmetric. The flow within the middle cerebral arteries is normal and symmetric. The anterior communicating artery is not well seen. No aneurysms are seen. Posterior circulation: Visualized portions of the vertebral arteries demonstrate normal caliber, and join to form a normal appearing basilar artery. Flow within the posterior cerebral arteries is normal and symmetric. No aneurysms are seen. NECK CT ANGIOGRAPHY: Carotid system: The great vessels demonstrate a conventional anatomy as they arise from the aortic arch. The origins of the common carotid arteries appear patent. The common carotid arteries demonstrate normal caliber and courses. The bifurcation regions are both widely patent. The internal carotid arteries demonstrate normal calibers and courses. Posterior circulation: No definite stenosis can be seen involving the vertebral artery origins. There is tortuosity seen of the right proximal vertebral artery. The left vertebral artery is within normal limits. The visualized extracranial vertebral arteries are within normal limits. Soft tissues: Visualized neck soft tissues demonstrate no suspicious abnormalities. Bones: No suspicious bony lesions. Visualized cervical spine appears normally aligned. There is at least moderate cervical spine degenerative change. IMPRESSION: No significant intracranial arterial abnormality is seen. No significant carotid abnormality is seen. No focal vertebral artery stenosis is seen. Incidental note is made of: At least moderate cervical spine degenerative change Any quantitative measurements of stenosis were performed using NASCET criteria. Dictated by: Adalid Carolina M.D. on 03/21/2021 at 10:31 Approved by: Adalid Carolina M.D. on 03/21/2021 at 10:35
--- NOTE | 2021-03-21 11:11 | ED_ITS ---
HPI - General Adult General Chief complaint: Neuro Symptoms/Deficit Stated complaint: Code Stroke Time Seen by Provider: 03/21/21 10:55 Source: patient Mode of arrival: EMS Limitations: altered mental status History of Present Illness HPI narrative: Patient is a 70-year-old female. She arrived by EMS as a code stroke. Approximately 1 hour prior to arrival it was reported that the patient was having word salad and other problems speaking. She has a history of dementia. She has a PLOST form that states she is a DNR with limited interventions. When EMS arrived they stated that they did not notice any slurring of words. They are unsure what her baseline mental status is given her history of dementia. Patient is unable to provide any HPI. There is no report of any trauma. Related Data Home Medications Medication Instructions Recorded Confirmed acetaminophen 325 mg capsule 650 mg PO Q4H PRN 01/23/20 03/10/21 Previous Rx's Medication Instructions Recorded albuterol sulfate 90 mcg/actuation 2 puff INHALATION Q4-6H PRN #6.7 10/30/19 aerosol inhaler (Ventolin HFA) gram aspirin 81 mg tablet,delayed 81 mg PO DAILY #90 tab 10/30/19 release (Adult Low Dose Aspirin) trazodone 50 mg tablet 50 mg PO DAILY #90 tab 09/10/20 calcium carbonate 600 mg calcium 600 mg PO DAILY #180 tab 10/04/20 (1,500 mg) tablet (Calcium) cholecalciferol (vitamin D3) 25 See Rx Instructions .ROUTE 10/04/20 mcg (1,000 unit) tablet (Vitamin .COMPLEX #180 tab D3) loratadine 10 mg tablet 10 mg PO DAILY #90 tab 10/04/20 (Allerclear) memantine 10 mg tablet 10 mg PO BID #180 tab 10/04/20 omeprazole 20 mg capsule,delayed 20 mg PO DAILY #90 cap 10/04/20 release escitalopram oxalate 20 mg tablet See Rx Instructions .ROUTE 11/05/20 .COMPLEX #90 tab magnesium hydroxide 400 mg/5 mL See Rx Instructions .ROUTE 11/21/20 oral suspension (Milk of Magnesia) .COMPLEX #473 ml acetaminophen 325 mg capsule 650 mg PO DAILY #180 cap 12/31/20 levothyroxine 75 mcg tablet 75 mcg PO DAILY #90 tab 12/31/20 Disabled Parking Permit See Rx Instructions .ROUTE 01/13/21 .COMPLEX #1 unit ciprofloxacin HCl 500 mg tablet 500 mg PO Q12H #14 tab 01/17/21 (Cipro) valacyclovir 1 gram tablet 1,000 mg PO BID #7 tab 01/27/21 docusate sodium 100 mg capsule 100 mg PO DAILY #90 cap 03/10/21 (Colace) Allergies Allergy/AdvReac Type Severity Reaction Status Date / Time Penicillins Allergy Mild Verified 03/10/21 12:53 Review of Systems Review of Systems ROS Unobtainable: Unobtainable due to mental condition Patient History Medical History Advanced care planning/counseling discussion Allergies Anxiety Asthma Carpal tunnel syndrome Cataracts, bilateral CPAP (continuous positive airway pressure) dependence Dementia (~2016) Depression Encounter for HCV screening test for high risk patient Facial numbness FH: GRAY-BSO (total abdominal hysterectomy and bilateral salpingo-oophorectomy) Frailty syndrome in geriatric patient GERD (gastroesophageal reflux disease) Headache History of urinary incontinence Hypothyroidism 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 Mild diastolic dysfunction Noncompliance with CPAP treatment Rectal prolapse Restless leg syndrome Retinal detachment (~2014) Sleep apnea Stool incontinence TIA (transient ischemic attack) (~2014) Urinary frequency Urinary incontinence Weight loss observed on examination Surgical History H/O eye surgery Family History Father History of heart disease Hypertension Mother History of heart disease Hypertension Sister Diabetes mellitus Hypothyroidism Social History Smoking Status: Never smoker Smoking Status: Never smoker alcohol intake frequency: holidays/special occasions only Substance Use Type: does not use Exam Initial Vital Signs Initial Vital Signs: Vital Signs Pulse Rate 79 03/21/21 11:11 Pulse Oximetry 100 03/21/21 11:11 Const General: healthy appearing and comfortable HENMT Head: normal to inspection and normocephalic Resp Effort & Inspection: normal respiratory effort Auscultation: clear to auscultation bilaterally Cardio Rate: regular rate Rhythm: regular rhythm GI Palpation: soft and No tender Skin General: no rashes or lesions noted Neuro General: patient alert, patient awake and moves all extremities Other: Patient is confused. She states the year is 2020 when in actuality does 2021. She did not answer other orientation questions. She does move all 4 extremities. Does follow commands to a certain point. She was able to do usjqmm-mq-jzkm with her right and left hand however it did take quite a bit of coaching. She could not do nlti-yr-bguc with her lower extremities but I am unsure if she understood what I was asking her to do. She did not have facial droop. The words that the patient did say were not slurred. Extrem General: normal to inspection and capillary refill normal Psych Appearance: grossly normal and well kempt Scores GCS Henry coma scale eye opening: Spontaneous Henry coma scale verbal response: Words Henry coma scale motor response: Obey commands Quiana coma scale total score: 13 Course Orders Ordered: ED Orders 03/21/21 10:55 CT Stroke Stat 03/21/21 10:56 CT angio head and neck Stat 03/21/21 10:58 EKG-12 Lead Stat 03/21/21 11:56 Comprehensive Metabolic Panel Stat Ethanol (ETOH) Stat 03/21/21 12:15 Complete Blood Count AUTO DIFF Stat Lipase Stat Magnesium Stat Partial Thromboplastin Time Stat Prothrombin Time INR Stat Troponin & CK Cardiac Panel Stat 03/21/21 13:00 Urinalysis and Microscopic Stat Sodium Chloride (Normal Saline 0.9%) 1,000 mls @ 125 mls/hr IV CONT CHAUNCEY Last Admin: 03/21/21 11:40 Dose: 125 mls/hr Documented by: ERIK Vital Signs Vital signs: Vital Signs - 8 hr 03/21/21 11:11 03/21/21 11:16 03/21/21 11:21 Temperature 98.1 F Pulse Rate 79 75 67 Respiratory Rate 17 16 Blood Pressure 141/67 H 141/67 H Pulse Oximetry 100 100 97 03/21/21 11:30 03/21/21 12:00 03/21/21 12:30 Temperature Pulse Rate 68 68 68 Respiratory Rate 28 H 26 H 16 Blood Pressure Pulse Oximetry 95 99 03/21/21 13:00 Temperature Pulse Rate 127 H Respiratory Rate Blood Pressure Pulse Oximetry 100 Medical Decision Making Lab Data Lab results reviewed: Yes I reviewed the patient's lab results. Result diagrams: 03/21/21 12:15 03/21/21 11:56 Labs: Lab Results 03/21/21 03/21/21 03/21/21 Range/Units 11:56 12:15 12:15 WBC 6.5 (4.5-11.0) X10^3/uL RBC 3.75 L (4.0-5.2) X10^6/uL Hgb 11.3 L (12.0-16.0) g/dL Hct 33.7 L (36-46) % MCV 89.8 (80-100) fL MCH 30.0 (26-34) PG MCHC 33.4 (30-36) % RDW 13.4 (11.6-14.8) % Plt Count 235 (150-400) X10^3/uL Neut % (Auto) 69.6 (50-75) % Lymph % (Auto) 18.4 L (25-40) % [place] % (Auto) 10.4 (3-14) % Eos % (Auto) 0.6 L (2-4) % Baso % (Auto) 1.0 (0-2) % Neut # (Auto) 4500 (8659-7228) /uL Lymph # (Auto) 1200 (3882-5552) /uL [place] # (Auto) 700 (0-900) /uL Eos # (Auto) 0 (0-450) /uL Baso # (Auto) 100 (0-100) /uL PT 11.7 (10.1-12.7) SECONDS INR 1.0 (0.9-1.3) APTT 26 L (26.4-36.2) SECONDS Sodium 138 (137-145) mmol/L Potassium 4.3 (3.4-5.1) mmol/L Chloride 103 (98-107) mmol/L Carbon Dioxide 31 (22-32) mmol/L BUN 15 (7-17) mg/dL Creatinine 0.88 (0.52-1.04) mg/dL Estimated GFR > 60.0 (>60) mL/min BUN/Creatinine Ratio 17.0 (6-22) Glucose 95 (80-110) mg/dL Calcium 9.4 (8.4-10.2) mg/dL Magnesium (1.6-2.3) mg/dL Total Bilirubin 0.4 (0.2-1.3) mg/dL AST 20 (14-36) IU/L ALT 9 (<35) IU/L Alkaline Phosphatase 69 (38-126) U/L Total Creatine Kinase (30-135) U/L CK-MB (CK-2) CK-MB (CK-2) Rel Index Troponin I (0.01-0.034) ng/mL Total Protein 6.2 L (6.3-8.2) g/dL Albumin 3.7 (3.5-5.0) g/dL Globulin 2.5 (1.7-4.1) g/dL Albumin/Globulin Ratio 1.5 (1.0-2.8) Lipase (23-300) U/L Urine Color Urine Appearance Urine pH (4.5-8.0) Ur Specific [place] (1.000-1.035) Urine Protein (Negative) Urine Glucose (UA) (Negative) g/dL Urine Ketones (NEGATIVE) Urine Occult Blood (Negative) Urine Nitrate (Negative) Urine Bilirubin (NEGATIVE) Urine Urobilinogen (0.2) E.U./dL Ur Leukocyte Esterase (NEGATIVE) Urine RBC (0-5/HPF) Urine WBC (0-5/HPF) Urine Bacteria (None) Ur Culture Indicated? Micro UA Comment Ethyl Alcohol < 10 ( - 10) mg/dL 03/21/21 03/21/21 Range/Units 12:15 13:00 WBC (4.5-11.0) X10^3/uL RBC (4.0-5.2) X10^6/uL Hgb (12.0-16.0) g/dL Hct (36-46) % MCV (80-100) fL MCH (26-34) PG MCHC (30-36) % RDW (11.6-14.8) % Plt Count (150-400) X10^3/uL Neut % (Auto) (50-75) % Lymph % (Auto) (25-40) % [place] % (Auto) (3-14) % Eos % (Auto) (2-4) % Baso % (Auto) (0-2) % Neut # (Auto) (8502-9218) /uL Lymph # (Auto) (4134-6376) /uL [place] # (Auto) (0-900) /uL Eos # (Auto) (0-450) /uL Baso # (Auto) (0-100) /uL PT (10.1-12.7) SECONDS INR (0.9-1.3) APTT (26.4-36.2) SECONDS Sodium (137-145) mmol/L Potassium (3.4-5.1) mmol/L Chloride (98-107) mmol/L Carbon Dioxide (22-32) mmol/L BUN (7-17) mg/dL Creatinine (0.52-1.04) mg/dL Estimated GFR (>60) mL/min BUN/Creatinine Ratio (6-22) Glucose (80-110) mg/dL Calcium (8.4-10.2) mg/dL Magnesium 1.9 (1.6-2.3) mg/dL Total Bilirubin (0.2-1.3) mg/dL AST (14-36) IU/L ALT (<35) IU/L Alkaline Phosphatase (38-126) U/L Total Creatine Kinase 42 (30-135) U/L CK-MB (CK-2) TNP CK-MB (CK-2) Rel Index TNP Troponin I < 0.012 (0.01-0.034) ng/mL Total Protein (6.3-8.2) g/dL Albumin (3.5-5.0) g/dL Globulin (1.7-4.1) g/dL Albumin/Globulin Ratio (1.0-2.8) Lipase 61 (23-300) U/L Urine Color Yellow Urine Appearance Clear Urine pH 7.5 (4.5-8.0) Ur Specific [place] 1.010 (1.000-1.035) Urine Protein Negative (Negative) Urine Glucose (UA) Negative (Negative) g/dL Urine Ketones Negative (NEGATIVE) Urine Occult Blood Negative (Negative) Urine Nitrate Negative (Negative) Urine Bilirubin Negative (NEGATIVE) Urine Urobilinogen 0.2 (0.2) E.U./dL Ur Leukocyte Esterase Negative (NEGATIVE) Urine RBC None seen (0-5/HPF) Urine WBC None seen (0-5/HPF) Urine Bacteria None seen (None) Ur Culture Indicated? Cult not indicated Micro UA Comment Microscopic normal Ethyl Alcohol ( - 10) mg/dL Point of Care Testing Glucose POC 121 Point of care testing: Point of Care Testing Glucose POC [address] scan - head: Radiologist's Impression: [address] [address] [address] Scan Report Signed Patient: Loraine Chinchilla MR#: [id number] : 1950 Acct:[id number] Age/Sex: 70 / F Date of Service: 03/21/21 Loc: ED Accession Number: [id number] ?? Procedure: CT Stroke Ordering Provider: Catarino Contreras D.O. PROCEDURE:? CT STROKE ? INDICATIONS:? code stroke ? TECHNIQUE:? Noncontrast 4.5 mm thick angled axial sections acquired from the foramen magnum to the vertex, with coronal reformats.? For radiation dose reduction, the following was used:? automated exposure control, adjustment of mA and/or kV according to patient size.? ? COMPARISON:? [facility], CT, CT HEAD/BRAIN WO CON, 09/21/2020, 11:18. ? FINDINGS:? Image quality:? Excellent.? ? CSF spaces:? Basal cisterns are patent.? No extra-axial fluid collections.? The ventricles are symmetric in size and shape.? ? Brain:? No intracranial bleeds or masses.? There is cerebral volume loss for age, with resultant ventricular and sulcal prominence.? There are periventricular and deep white matter chronic small vessel ischemic changes.? There is intracranial internal carotid artery atherosclerosis.? ? Skull and face:? Calvarium and visualized facial bones appear intact, without suspicious lesions.? ? Sinuses:? Visualized sinuses and mastoids are clear.? ? ? IMPRESSION:? No acute intracranial hemorrhage is seen.? ? No acute intracranial process is seen.? ? Note is made of age-appropriate brain parenchymal volume loss and chronic small vessel ischemic changes. ? Note: Case discussed by telephone with Dr. Contreras at 10:06 a.m. [place] time on March 21, 2021. ? ? ? This study fulfills neurological imaging criteria for inclusion or exclusion of acute stroke therapies based on available published neurological guidelines.? ? ? Dictated by: Adalid Carolina M.D. on 03/21/2021 at 10:05 ? ? Approved by: Adalid Carolina M.D. on 03/21/2021 at 10:07 CTA - brain/neck: Radiologist's Impression: [address] [address] [address] Scan Report Signed Patient: Loraine Chinchilla MR#: [id number] : 1950 Acct:[id number] Age/Sex: 70 / F Date of Service: 03/21/21 Loc: ED Accession Number: [id number] ?? Procedure: CT angio head and neck Ordering Provider: Catarino Contreras D.O. PROCEDURE:? CT ANGIO HEAD AND NECK ? INDICATIONS:? code stroke ? TECHNIQUE:? Noncontrast images were performed earlier in the day and not repeated.? ? After the administration of intravenous contrast, 1 mm thick sections acquired from the aortic arch through the [place] of [place].? Post-contrast 4.5 mm thick sections then re- acquired from the foramen magnum to the vertex.? 3-dimensional auervwu-rxbivxccs-wgbvnzqsnn (MIP) and/or volume rendering reformats were acquired of the central intracranial vasculature and neck separately. ? COMPARISON:? [facility], CT, CT STROKE, 03/21/2021, 10:57.? [facility], CT, CT HEAD/BRAIN WO CON, 09/21/2020, 11:18. ? FINDINGS:? Image quality:? Excellent.? ? BRAIN:? CSF spaces:? Ventricles are normal in size and shape.? Basal cisterns are patent.? No extra-axial fluid collections.? ? Brain:? No midline shift.? No intracranial bleeds or masses.? [place]-white matter interface appears intact.? ? Skull and face:? Calvarium and facial bones appear intact, without suspicious lesions.? Orbits appear normal.? ? Sinuses:? Sinuses and mastoids are clear.? ? HEAD CT ANGIOGRAPHY:? Anterior circulation:? Intracranial internal carotid arteries are normal in size and flow.? The flow within the paired anterior cerebral arteries is normal and symmetric.? The flow within the middle cerebral arteries is normal and symmetric.? The anterior communicating artery is not well seen.? No aneurysms are seen.? ? Posterior circulation:? Visualized portions of the vertebral arteries demonstrate normal caliber, and join to form a normal appearing basilar artery.? Flow within the posterior cerebral arteries is normal and symmetric.? No aneurysms are seen.? ? NECK CT ANGIOGRAPHY:? Carotid system:? The great vessels demonstrate a conventional anatomy as they arise from the aortic arch.? The origins of the common carotid arteries appear patent.? The common carotid arteries demonstrate normal caliber and courses.? The bifurcation regions are both widely patent.? The internal carotid arteries demonstrate normal calibers and courses.? ? Posterior circulation:? No definite stenosis can be seen involving the vertebral artery origins.? There is tortuosity seen of the right proximal vertebral artery.? The left vertebral artery is within normal limits.? The visualized extracranial vertebral arteries are within normal limits.? ? Soft tissues:? Visualized neck soft tissues demonstrate no suspicious abnormal ities.? ? Bones:? No suspicious bony lesions.? Visualized cervical spine appears normally aligned.? There is at least moderate cervical spine degenerative change. ? ? IMPRESSION:? No significant intracranial arterial abnormality is seen.? ? No significant carotid abnormality is seen. ? No focal vertebral artery stenosis is seen.? Incidental note is made of: At least moderate cervical spine degenerative change ? Any quantitative measurements of stenosis were performed using NASCET criteria.? ? ? Dictated by: Adalid Carolina M.D. on 03/21/2021 at 10:31 ? ? Approved by: Adalid Carolina M.D. on 03/21/2021 at 10:35? ECG Data Attestation: I personally reviewed and interpreted this ECG as follows: Interpretation: Sinus rhythm Ventricular rate is 69 Occasional PVC Normal axis Significant artifact secondary to patient's shaking. MDM Narrative Medical decision making narrative: Unable to perform a NIH scale secondary to patient's ability to follow commands. I did not appreciate any slurring of words. I did discuss the case with the patient's daughter over the phone. Patient's daughter is a nurse and she und erstands the situation. We had a discussion about tPA and we both agreed that we will hold on tPA for now given the patient's prior medical issues and her PLOST form. Patient's head CT and CTA relatively unremarkable. Patient's daughter arrived at bedside and states that she is not 100% back to normal but her speech in how she is acting is fairly similar to her baseline. We did discuss other potential etiologies such as TIA. We discussed options of workup to include being admitted to the hospital versus discharging home with the risks and benefits small this. After this extensive discussion the patient's daughter states she would like to hold on any further workup. Plan is to discharge the patient back to her living facility. She will continue all of her medications as directed. Discharge Plan Departure Patient Disposition: Home Clinical Impression: Slurred speech, Dementia Instructions: How to Prevent Falls Activity Restrictions/Additional Instructions: She can continue to take all of her medications as directed. Contact her primary doctor for a follow-up. Return to the emergency department for any new or worsening symptoms. Prescriptions: No Action trazodone 50 mg tablet 50 mg PO DAILY Qty: 90 3RF Rx Instructions: Take 1 tablet at bedtime for depression/insomnia calcium carbonate [Calcium 600] 600 mg calcium (1,500 mg) tablet 600 mg PO DAILY Qty: 180 3RF Rx Instructions: Take 1 tab by mouth twice daily for prevention of osteoporosis memantine 10 mg tablet 10 mg PO BID Qty: 180 3RF Rx Instructions: Take 1 tablet twice daily for memory loratadine [Allerclear] 10 mg tablet 10 mg PO DAILY Qty: 90 3RF Rx Instructions: Take 1 tab daily for allergies. omeprazole 20 mg capsule,delayed release(DR/EC) 20 mg PO DAILY Qty: 90 3RF Rx Instructions: Take 1 tablet daily for heartburn cholecalciferol (vitamin D3) [Vitamin D3] 25 mcg (1,000 unit) tablet See Rx Instructions .ROUTE .COMPLEX Qty: 180 3RF Dose Instruction: TAKE (1) TABLET BY MOUTH TWICE DAILY. Rx Instructions: TAKE (1) TABLET BY MOUTH TWICE DAILY. escitalopram oxalate 20 mg tablet See Rx Instructions .ROUTE .COMPLEX Qty: 90 3RF Dose Instruction: TAKE 1 TABLET BY MOUTH ONCE DAILY. Rx Instructions: TAKE 1 TABLET BY MOUTH ONCE DAILY. magnesium hydroxide [Milk of Magnesia] 400 mg/5 mL suspension See Rx Instructions .ROUTE .COMPLEX Qty: 473 0RF Dose Instruction: TAKE 30ML BY MOUTH DAILY NEEDED FOR CONSTIPATION IF NO BOWEL MOVEMENT AFTER 4 DAYS. Rx Instructions: TAKE 30ML BY MOUTH DAILY NEEDED FOR CONSTIPATION IF NO BOWEL MOVEMENT AFTER 4 DAYS. levothyroxine 75 mcg tablet 75 mcg PO DAILY Qty: 90 1RF Rx Instructions: Take 1 tablet by mouth will on an empty stomach daily 30 minutes prior to e ating. acetaminophen 325 mg capsule 650 mg PO DAILY Qty: 180 1RF Rx Instructions: Take 2 tabs by mouth routinely each morning, NTE 3 grams in 24 hours total ciprofloxacin HCl [Cipro] 500 mg tablet 500 mg PO Q12H Qty: 14 0RF Rx Instructions: Take 1 tab q 12 hours x7 days. valacyclovir 1 gram tablet 1,000 mg PO BID Qty: 7 0RF acetaminophen 325 mg capsule 650 mg PO Q4H PRN (Reason: pain) 0RF Label Comments: NTE 3 grams total in 24 hours Disabled Parking Permit See Rx Instructions .ROUTE .COMPLEX Qty: 1 0RF Rx Instructions: I find this patient to be medically disabled and qualify for disabled parking as indicated and signed on the accompanying disabled parking application for individuals. albuterol sulfate [Ventolin HFA] 90 mcg/actuation HFA aerosol inhaler 2 puff INHALATION Q4-6H PRN (Reason: shortness of breath or wheezing) Qty: 6.7 6RF Rx Instructions: 2 puffs inhaled every 4 hours as needed aspirin [Adult Low Dose Aspirin] 81 mg tablet,delayed release (DR/EC) 81 mg PO DAILY Qty: 90 3RF Rx Instructions: Take 1 tab by mouth daily for prevention of heart attack and stroke. docusate sodium [Colace] 100 mg capsule 100 mg PO DAILY Qty: 90 3RF Rx Instructions: HOLD FOR DIARRHEA Referrals: Yvette Jones ARNP [Primary Care Provider] -
[2021-03-21] MEDS: SODIUM CHLORIDE 0.9% 1,000 ML 125 ML IV (11:40)
[2021-03-21 12:18] LABS: Alanine Aminotransferase 9 IU/L (<35); Albumin 3.7 g/dL (3.5-5.0); Albumin Globulin Ratio 1.5 (1.0-2.8); Alkaline Phosphatase 69 U/L (38-126); Aspartate Aminotransferase 20 IU/L (14-36); Bilirubin Total 0.4 mg/dL (0.2-1.3); Blood Urea Nitrogen 15 mg/dL (7-17); Calcium 9.4 mg/dL (8.4-10.2); Carbon Dioxide 31 mmol/L (22-32); Chloride 103 mmol/L (98-107); Estimated Glomerular Filt Rate > 60.0 mL/min (>60); Ethanol (ETOH) < 10 mg/dL; Globulin 2.5 g/dL (1.7-4.1); Glucose 95 mg/dL (80-110); HEMOLYSIS < 15 (0-50); Potassium 4.3 mmol/L (3.4-5.1); Sodium 138 mmol/L (137-145); Total Protein 6.2 g/dL (6.3-8.2)
[2021-03-21 12:21] LABS: Add Manual Diff / Slide Review NO; Basophils Absolute Auto 100 /uL (0-100); Eosinophils Absolute Auto 0 /uL (0-450); Eosinophils Percent Auto 0.6 % (2-4); Hematocrit 33.7 % (36-46); Hemoglobin 11.3 g/dL (12.0-16.0); Lymphocytes Absolute Auto 1200 /uL (1100-4500); Lymphocytes Percent Auto 18.4 % (25-40); Mean Corpuscular HGB Conc 33.4 % (30-36); Mean Corpuscular Volume 89.8 fL (80-100); Monocytes Absolute Auto 700 /uL (0-900); Monocytes Percent Auto 10.4 % (3-14); Neutrophils Absolute Auto 4500 /uL (1500-7000); Neutrophils Percent Auto 69.6 % (50-75); Platelet Count 235 X10^3/uL (150-400); Red Blood Cell Count 3.75 X10^6/uL (4.0-5.2); Red Cell Distribution Width 13.4 % (11.6-14.8); White Blood Cell Count 6.5 X10^3/uL (4.5-11.0)
[2021-03-21 12:28] LABS: Prothrombin Time 11.7 SECONDS (10.1-12.7)
[2021-03-21 12:30] LABS: PTT Partial Thromboplastin Tim 26 SECONDS (26.4-36.2)
[2021-03-21 12:31] LABS: Creatine Kinase 42 U/L (30-135); Lipase 61 U/L (23-300); Magnesium 1.9 mg/dL (1.6-2.3)
[2021-03-21 12:44] LABS: Troponin I < 0.012 ng/mL (0.01-0.034)
[2021-03-21 13:15] LABS: Appearance Urine UA CLEAR; Bilirubin Urine UA NEGATIVE (NEGATIVE); Color Urine UA YELLOW; Glucose Urine UA NEGATIVE (Negative); Ketones Urine UA NEGATIVE (NEGATIVE); Leukocyte Esterase Urine UA NEGATIVE (NEGATIVE); Nitrite Urine UA NEGATIVE (Negative); Occult Blood Urine UA NEGATIVE (Negative); Protein Urine UA NEGATIVE (Negative); Urobilinogen Urine UA 0.2 E.U./dL (0.2)
[2021-03-21 13:16] LABS: pH Urine UA 7.5 (4.5-8.0)
[2021-03-21 13:20] LABS: Bacteria Urine None Seen; Culture Indicated Urine Cult Not Indicated; RBC Urine None Seen (0-5/HPF); Urine Comments Microscopic Normal; WBC Urine None Seen (0-5/HPF)
== END 2021-03-21 14:05 | disposition home or self-care (01) ==
PROVIDERS: Emergency Provider Emergency Medicine; PCP Nurse Practitioner
DX: R47.81 Slurred speech (principal); F03.90 Unspecified dementia, unspecified severity, without behavioral disturbance, psychotic disturbance, mood disturbance, and anxiety; I49.3 Ventricular premature depolarization
CPT/HCPCS: 36415; 70450; 70496; 70498; 80053; 80320; 81001; 82550; 82962; 83690; 83735; 84484; 85025; 85610; 85730; 93005; 93010; 96360; 96361; 99284

== ENCOUNTER → 2021-05-27 21:27 | Outpatient (ROUT) | payer MEDICARE, OTHER, SELFPAY ==
[2021-05-27 22:23] LABS: Bilirubin Urine UA NEGATIVE (NEGATIVE); Color Urine UA YELLOW; Glucose Urine UA NEGATIVE (Negative); Ketones Urine UA NEGATIVE (NEGATIVE); Leukocyte Esterase Urine UA NEGATIVE (NEGATIVE); Nitrite Urine UA NEGATIVE (Negative); Occult Blood Urine UA NEGATIVE (Negative); Protein Urine UA NEGATIVE (Negative); Specific Gravity Urine UA 1.015 (1.000-1.035); Urobilinogen Urine UA 0.2 E.U./dL (0.2)
[2021-05-27 22:31] LABS: pH Urine UA 6.5 (4.5-8.0)
[2021-05-27 23:38] LABS: Appearance Urine UA Slightly Cloudy; Bacteria Urine Many (>30); Culture Indicated Urine Specimen Cultured; RBC Urine None Seen (0-5/HPF); WBC Urine None Seen (0-5/HPF)
== END ==
PROVIDERS: PCP Nurse Practitioner; Visit Provider Nurse Practitioner
DX: R30.0 Dysuria (principal); R32 Unspecified urinary incontinence; R41.89 Other symptoms and signs involving cognitive functions and awareness
CPT/HCPCS: 81001; 87077; 87086

== ENCOUNTER → 2021-06-04 08:50 | Outpatient (ROUT) | payer MEDICARE, OTHER, SELFPAY ==
[2021-06-04 09:07] LABS: Appearance Urine UA SL CLOUDY; Bilirubin Urine UA NEGATIVE (NEGATIVE); Color Urine UA YELLOW; Glucose Urine UA NEGATIVE (Negative); Ketones Urine UA NEGATIVE (NEGATIVE); Leukocyte Esterase Urine UA NEGATIVE (NEGATIVE); Nitrite Urine UA NEGATIVE (Negative); Occult Blood Urine UA NEGATIVE (Negative); Protein Urine UA NEGATIVE (Negative); Urobilinogen Urine UA 0.2 E.U./dL (0.2)
== END ==
PROVIDERS: PCP Nurse Practitioner; Visit Provider Nurse Practitioner
DX: R32 Unspecified urinary incontinence (principal); R35.0 Frequency of micturition; R41.89 Other symptoms and signs involving cognitive functions and awareness
CPT/HCPCS: 81003

== ENCOUNTER → 2021-06-04 14:10 | Outpatient (CLI) | payer MEDICARE, OTHER, SELFPAY | PROVIDERS: PCP Nurse Practitioner; Referring Provider Psychiatry & Neurology Neurology; Visit Provider Psychiatry & Neurology Neurology | DX: F03.90 Unspecified dementia, unspecified severity, without behavioral disturbance, psychotic disturbance, mood disturbance, and anxiety (principal); Z53.8 Procedure and treatment not carried out for other reasons ==

== ENCOUNTER → 2021-06-17 13:33 | Outpatient (CLI) | payer MEDICARE, OTHER, SELFPAY ==
--- NOTE | 2021-06-17 | DI.MRI.S_ITS ---
PROCEDURE: MR HEAD/BRAIN WO CON INDICATIONS: Unspecified dementia without behavioral disturbance TECHNIQUE: Non-contrast axial T1 spin echo, axial T2 fast spin echo, sagittal and axial FLAIR, coronal T2 fast spin echo, axial gradient echo, axial diffusion and ADC through the brain. COMPARISON: None. FINDINGS: Moderate to severe global cerebral volume loss with predilection for the perisylvian and perirolandic regions. Moderate to severe chronic microvascular ischemic changes. No unexpected intracranial susceptibility. No restricted diffusion. No findings of mass effect or midline shift. The major intracranial vascular flow-related signal voids are maintained. IMPRESSION: Severe chronic microvascular ischemic changes and severe global cerebral volume loss which appears to preferentially involve the perirolandic and perisylvian regions. Correlate for Alzheimer dementia. Dictated by: Buzz Alvarado M.D. on 06/17/2021 at 14:57 Approved by: Buzz Alvarado M.D. on 06/17/2021 at 14:58
== END ==
PROVIDERS: PCP Nurse Practitioner; Referring Provider Psychiatry & Neurology Neurology; Visit Provider Psychiatry & Neurology Neurology
DX: R25.1 Tremor, unspecified (principal); F03.90 Unspecified dementia, unspecified severity, without behavioral disturbance, psychotic disturbance, mood disturbance, and anxiety
CPT/HCPCS: 70551

== ENCOUNTER 2021-06-17 15:50 | Emergency (ER) | payer MEDICARE, OTHER, SELFPAY ==
--- NOTE | 2021-06-17 15:53 | ED_ITS ---
HPI - Fall General Chief Complaint: Trauma Stated Complaint: Fall Time Seen by Provider: 06/17/21 15:53 Source: patient, EMS and old records reviewed History of Present Illness HPI Narrative: 70-year-old female with history of dementia, Parkinson's, and hypothyroid who has limited verbal interactions. She uses some words. Patient had a mechanical, ground level witnessed fall at her care facility by caregivers. No loss of consciousness is reported. When asked if patient has pain he states ?intense? but is unable to give much history otherwise. Patient answers questions with words but they do not correlate to the question. She does not appear to be anticoagulated according to her MAR or EMS report. Related Data Home Medications Medication Instructions Recorded Confirmed acetaminophen 325 mg capsule 650 mg PO Q4H PRN 01/23/20 04/15/21 carbidopa 25 mg-levodopa 100 mg 0.5 tab PO TID tab 05/19/21 tablet Previous Rx's Medication Instructions Recorded calcium carbonate 600 mg calcium 600 mg PO DAILY #180 tab 10/04/20 (1,500 mg) tablet (Calcium) cholecalciferol (vitamin D3) 25 See Rx Instructions .ROUTE 10/04/20 mcg (1,000 unit) tablet (Vitamin .COMPLEX #180 tab D3) omeprazole 20 mg capsule,delayed 20 mg PO DAILY #90 cap 10/04/20 release escitalopram oxalate 20 mg tablet See Rx Instructions .ROUTE 11/05/20 .COMPLEX #90 tab magnesium hydroxide 400 mg/5 mL See Rx Instructions .ROUTE 11/21/20 oral suspension (Milk of Magnesia) .COMPLEX #473 ml acetaminophen 325 mg capsule 650 mg PO DAILY #180 cap 12/31/20 levothyroxine 75 mcg tablet 75 mcg PO DAILY #90 tab 12/31/20 docusate sodium 100 mg capsule 100 mg PO DAILY #90 cap 03/10/21 (Colace) Disabled Parking Permit See Rx Instructions .ROUTE 04/15/21 .COMPLEX #1 unit albuterol sulfate 90 mcg/actuation 2 puff INHALATION Q4-6H PRN #6.7 05/20/21 aerosol inhaler (Ventolin HFA) gram Allergies Allergy/AdvReac Type Severity Reaction Status Date / Time Penicillins Allergy Mild Verified 04/15/21 12:18 Review of Systems Review of Systems ROS Unobtainable: Unobtainable due to mental status/LOC Patient History Medical History Advanced care planning/counseling discussion Allergies Anxiety Asthma Carpal tunnel syndrome Cataracts, bilateral Cognitive decline CPAP (continuous positive airway pressure) dependence Dementia (~2016) Depression Encounter for HCV screening test for high risk patient Facial numbness FH: GRAY-BSO (total abdominal hysterectomy and bilateral salpingo-oophorectomy) Frailty syndrome in geriatric patient GERD (gastroesophageal reflux disease) Headache History of urinary incontinence Hypothyroidism 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 Mild diastolic dysfunction Noncompliance with CPAP treatment Rectal prolapse Recurrent falls Restless leg syndrome Retinal detachment (~2014) Sleep apnea Stool incontinence TIA (transient ischemic attack) (~2014) Urinary frequency Urinary incontinence Weight loss observed on examination Surgical History H/O eye surgery Family History Father History of heart disease Hypertension Mother History of heart disease Hypertension Sister Diabetes mellitus Hypothyroidism Social History Smoking Status: Never smoker Smoking Status: Never smoker alcohol intake frequency: holidays/special occasions only Substance Use Type: does not use Exam Narrative Exam Narrative: GEN: Patient appears in mild distress. HEAD: No evidence of trauma except for a small nodule on the posterior scalp, it is quite firm may actually be a node or lipoma there is no ecchymosis, abrasion or skin changes overlying the area, no raccoon/Degroot sign. NECK: Nontender, painless range of motion, trachea midline Negative Nexus criteria, there is no midline line tenderness, distracting injury, altered mental status-patient does have dementia but is at baseline but unable to answer questions clearly, neuro deficit, recent EtOH. EYES: PERRLA, EOMI ENT: External inspection normal, trachea is midline, TM's are normal no hem otypanum, Nares are clear, no septal hematoma, no dental or oral injury, airway is normal and with normal occlusion, No bony tenderness RESP: Chest is nontender and has symmetric movement, no ecchymosis, breath sounds are normal no crackles, wheezes or rales CVS: Heart sounds are normal, no murmur noted, No JVD. ABG/GI: Nontender, soft, normal bowel sounds, no distention, no organomegaly, pelvic rock is negative NEURO: Oriented AOx3, neuro is grossly intact, sensation and motor is normal all 4 extremities moving, cranial nerves II through XII are intact, GCS is 14 PSYCH: Normal mood and affect SKIN: Intact, warm and dry, no crepitus and without decubitus BACK: No CVA tenderness, no vertebral tenderness, no step-off's, no crepitus EXT: Atraumatic with palpation of all 4 extremities, hips are nontender, normal range of motion of extremities. Nontender with active and passive range of motion. No obvious ecchymosis or skin changes or deformity noted. SKIN: Initial Vital Signs Initial Vital Signs: Vital Signs Pulse Rate 76 06/17/21 16:01 Respiratory Rate 14 06/17/21 16:01 Blood Pressure 126/68 06/17/21 16:01 Pulse Oximetry 99 06/17/21 16:01 Scores GCS [place] coma scale eye opening: Spontaneous [place] coma scale verbal response: Words [place] coma scale motor response: Obey commands [place] coma scale total score: 13 Course Orders Ordered: ED Orders 06/17/21 15:59 CT cervical spine wo con Stat CT head/brain wo con Stat Reevaluation(s) Reevaluation #1: On recheck patient is sitting up in the bed attempting to exit. She sits back down when asked to do so. She has good range of motion of all 4 extremities and clearly muscle strength and movement. Vital Signs Vital signs: Vital Signs - 8 hr 06/17/21 16:01 Pulse Rate 76 Respiratory Rate 14 Blood Pressure 126/68 Pulse Oximetry 99 MDM - Fall Imaging Data CT scan - head: Radiologist's Impression: [address] [address] [address] Scan Report Signed Patient: Loraine Chinchilla MR#: [id number] : 1950 Acct:[id number] Age/Sex: 70 / F Date of Service: 06/17/21 Loc: ED Accession Number: [id number] ?? Procedure: CT head/brain wo con Ordering Provider: Kylee Oden D.O. PROCEDURE:? CT HEAD/BRAIN WO CON ? INDICATIONS:? Dementia, witnessed fall ? TECHNIQUE:? Noncontrast 4.5 mm thick angled axial sections acquired from the foramen magnum to the vertex, with coronal and sagittal reformats.? For radiation dose reduction, the following was used:? automated exposure control, adjustment of mA and/or kV according to patient size.? ? COMPARISON:? [facility], MR, MR HEAD/BRAIN WO CON, 06/17/2021, 14:04.? [facility], CT, CT ANGIO HEAD AND NECK, 03/21/2021, 10:59.? [facility], CT, CT HEAD/BRAIN WO CON, 09/21/2020, 11:18.? [facility], CT, CT STROKE, 03/21/2021, 10:57. ? FINDINGS:? Image quality:? Excellent.? ? CSF spaces:? Basal cisterns are patent.? No extra-axial fluid collections.? The ventricles are symmetric in size and shape.? ? Brain:? No intracranial bleeds or masses.? There is cerebral volume loss for age, with resultant ventricular and sulcal prominence.? Predilection for the perisylvian regions noted.? There are periventricular and deep white matter chronic small vessel ischemic changes.? There is intracranial internal carotid artery atherosclerosis.? ? Skull and face:? Calvarium and visualized facial bones appear intact, without suspicious lesions.? ? Sinuses:? Visualized sinuses and mastoids are clear.? ? IMPRESSION:? Chronic global cerebral volume loss and mild-moderate chronic microvascular ischemic changes.? No acute intracranial abnormality identified. ? ? Dictated by: Buzz Alvarado M.D. on 06/17/2021 at 16:23 ? ? Approved by: Buzz Alvarado M.D. on 06/17/2021 at 16:24?? CT - cervical spine: Radiologist's Impression: [address] [address] [address] Scan Report Signed Patient: Loraine Chinchilla MR#: [id number] : 1950 Acct:[id number] Age/Sex: 70 / F Date of Service: 06/17/21 Loc: ED Accession Number: [id number] ?? Procedure: CT cervical spine wo con Ordering Provider: Kylee Oden D.O. PROCEDURE:? CT CERVICAL SPINE WO CON ? INDICATIONS:? witnessed fall, dementia ? TECHNIQUE:? Noncontrast 3 mm thick sections acquired from the skull base to the T4 level.? Sagittal and coronal reformats were then constructed.? For radiation dose reduction, the following was used:? automated exposure control, adjustment of mA and/or kV according to patient size.? ? COMPARISON:? [facility], CT, CT ANGIO HEAD AND NECK, 03/21/2021, 10:59. ? FINDINGS:? Image quality:? Excellent.? ? Normal cervical spine vertebral body height and alignment.? No suspicious lytic or blastic osseous lesion.? There is no fracture, subluxation, or dislocation identified.? Facets are congruent with no evidence abnormal traumatic widening.? Degenerative changes are present throughout the cervical spine, overall moderate. ? ? IMPRESSION:? No CT evidence of acute traumatic cervical spine injury. ? Dictated by: Buzz Alvarado M.D. on 06/17/2021 at 16:25 ? ? Approved by: Buzz Alvarado M.D. on 06/17/2021 at 16:26? MDM Narrative Medical decision making narrative: This is a 70-year-old female comes with witnessed ground level fall on [facility] but baseline has minimal verbal interaction and is unable to be medically cleared otherwise. Head CT and C-spine were ordered. There is a small nodule in her posterior scalp this may be a lipoma there is no obvious overlying trauma or ecchymosis or abrasion. Unable to evaluate further so head CT and C-spine were obtained and are negative. Patient is medically cleared. Discharge Plan Departure Patient Disposition: Home Clinical Impression: Fall, Dementia Activity Restrictions/Additional Instructions: Follow-up with your primary care physician for any additional concerns. Your imaging today is reassuring. Please return for acute changes in mental status, signs or symptoms of pain, difficulty breathing, persistent vomiting or other new or concerning symptoms. Prescriptions: No Action calcium carbonate [Calcium 600] 600 mg calcium (1,500 mg) tablet 600 mg PO DAILY Qty: 180 3RF Rx Instructions: Take 1 tab by mouth twice daily for prevention of osteoporosis omeprazole 20 mg capsule,delayed release(DR/EC) 20 mg PO DAILY Qty: 90 3RF Rx Instructions: Take 1 tablet daily for heartburn cholecalciferol (vitamin D3) [Vitamin D3] 25 mcg (1,000 unit) tablet See Rx Instructions .ROUTE .COMPLEX Qty: 180 3RF Dose Instruction: TAKE (1) TABLET BY MOUTH TWICE DAILY. Rx Instructions: TAKE (1) TABLET BY MOUTH TWICE DAILY. escitalopram oxalate 20 mg tablet See Rx Instructions .ROUTE .COMPLEX Qty: 90 3RF Dose Instruction: TAKE 1 TABLET BY MOUTH ONCE DAILY. Rx Instructions: TAKE 1 TABLET BY MOUTH ONCE DAILY. magnesium hydroxide [Milk of Magnesia] 400 mg/5 mL suspension See Rx Instructions .ROUTE .COMPLEX Qty: 473 0RF Dose Instruction: TAKE 30ML BY MOUTH DAILY NEEDED FOR CONSTIPATION IF NO BOWEL MOVEMENT AFTER 4 DAYS. Rx Instructions: TAKE 30ML BY MOUTH DAILY NEEDED FOR CONSTIPATION IF NO BOWEL MOVEMENT AFTER 4 DAYS. levothyroxine 75 mcg tablet 75 mcg PO DAILY Qty: 90 1RF Rx Instructions: Take 1 tablet by mouth will on an empty stomach daily 30 minutes prior to eating. acetaminophen 325 mg capsule 650 mg PO DAILY Qty: 180 1RF Rx Instructions: Take 2 tabs by mouth routinely each morning, NTE 3 grams in 24 hours total carbidopa-levodopa 25-100 mg tablet 0.5 tab PO TID 0RF albuterol sulfate [Ventolin HFA] 90 mcg/actuation HFA aerosol inhaler 2 puff INHALATION Q4-6H PRN (Reason: shortness of breath or wheezing) Qty: 6.7 6RF Rx Instructions: 2 puffs inhaled every 4 hours as needed acetaminophen 325 mg capsule 650 mg PO Q4H PRN (Reason: pain) 0RF Label Comments: NTE 3 grams total in 24 hours Disabled Parking Permit See Rx Instructions .ROUTE .COMPLEX Qty: 1 0RF Rx Instructions: I find this patient to be medically disabled and qualify for disabled parking as indicated and signed on the accompanying disabled parking application for individuals. docusate sodium [Colace] 100 mg capsule 100 mg PO DAILY Qty: 90 3RF Rx Instructions: HOLD FOR DIARRHEA Referrals: Yvette Jones ARNP [Primary Care Provider] -
--- NOTE | 2021-06-17 15:59 | DI.CT.S_ITS ---
PROCEDURE: CT HEAD/BRAIN WO CON INDICATIONS: Dementia, witnessed fall TECHNIQUE: Noncontrast 4.5 mm thick angled axial sections acquired from the foramen magnum to the vertex, with coronal and sagittal reformats. For radiation dose reduction, the following was used: automated exposure control, adjustment of mA and/or kV according to patient size. COMPARISON: [facility], MR, MR HEAD/BRAIN WO CON, 06/17/2021, 14:04. [facility], CT, CT ANGIO HEAD AND NECK, 03/21/2021, 10:59. [facility], CT, CT HEAD/BRAIN WO CON, 09/21/2020, 11:18. [facility], CT, CT STROKE, 03/21/2021, 10:57. FINDINGS: Image quality: Excellent. CSF spaces: Basal cisterns are patent. No extra-axial fluid collections. The ventricles are symmetric in size and shape. Brain: No intracranial bleeds or masses. There is cerebral volume loss for age, with resultant ventricular and sulcal prominence. Predilection for the perisylvian regions noted. There are periventricular and deep white matter chronic small vessel ischemic changes. There is intracranial internal carotid artery atherosclerosis. Skull and face: Calvarium and visualized facial bones appear intact, without suspicious lesions. Sinuses: Visualized sinuses and mastoids are clear. IMPRESSION: Chronic global cerebral volume loss and mild-moderate chronic microvascular ischemic changes. No acute intracranial abnormality identified. Dictated by: Bzuz Alvarado M.D. on 06/17/2021 at 16:23 Approved by: Buzz Alvarado M.D. on 06/17/2021 at 16:24
--- NOTE | 2021-06-17 15:59 | DI.CT.S_ITS ---
PROCEDURE: CT CERVICAL SPINE WO CON INDICATIONS: witnessed fall, dementia TECHNIQUE: Noncontrast 3 mm thick sections acquired from the skull base to the T4 level. Sagittal and coronal reformats were then constructed. For radiation dose reduction, the following was used: automated exposure control, adjustment of mA and/or kV according to patient size. COMPARISON: [facility], CT, CT ANGIO HEAD AND NECK, 03/21/2021, 10:59. FINDINGS: Image quality: Excellent. Normal cervical spine vertebral body height and alignment. No suspicious lytic or blastic osseous lesion. There is no fracture, subluxation, or dislocation identified. Facets are congruent with no evidence abnormal traumatic widening. Degenerative changes are present throughout the cervical spine, overall moderate. IMPRESSION: No CT evidence of acute traumatic cervical spine injury. Dictated by: Buzz Alvarado M.D. on 06/17/2021 at 16:25 Approved by: Buzz Alvarado M.D. on 06/17/2021 at 16:26
[2021-06-17 16:01] VITALS: BP 126/68; PULSE 76; RESP 14; O2SAT 99
== END 2021-06-17 17:15 | disposition home or self-care (01) ==
PROVIDERS: Emergency Provider Emergency Medicine; PCP Nurse Practitioner
DX: G31.83 Neurocognitive disorder with Lewy bodies (principal); F02.80 Dementia in other diseases classified elsewhere, unspecified severity, without behavioral disturbance, psychotic disturbance, mood disturbance, and anxiety; Z79.01 Long term (current) use of anticoagulants; W18.30XA Fall on same level, unspecified, initial encounter; Y92.89 Other specified places as the place of occurrence of the external cause; R25.1 Tremor, unspecified
CPT/HCPCS: 70450; 70551; 72125; 99284

== ENCOUNTER 2021-07-12 13:51 | Emergency (ER) | payer MEDICARE, OTHER, SELFPAY ==
[2021-07-12 13:56] VITALS: BP 153/69; PULSE 73; O2SAT 94
[2021-07-12 14:01] VITALS: BP 153/69; PULSE 74; RESP 18; O2SAT 100
--- NOTE | 2021-07-12 15:05 | DI.CT.S_ITS ---
PROCEDURE: CT CERVICAL SPINE WO CON INDICATIONS: Fall with neck pain TECHNIQUE: Noncontrast 3 mm thick sections acquired from the skull base to the T4 level. Sagittal and coronal reformats were then constructed. For radiation dose reduction, the following was used: automated exposure control, adjustment of mA and/or kV according to patient size. COMPARISON: [facility], CT, CT ANGIO HEAD AND NECK, 03/21/2021, 10:59. [facility], CT, CT HEAD/BRAIN WO CON, 07/12/2021, 15:08. [facility], CT, CT CERVICAL SPINE WO CON, 06/17/2021, 16:04. FINDINGS: Image quality: This examination is somewhat limited by quantum mottle artifact. Bones: No fractures or dislocations. Visualized superior ribs are intact. Degenerative changes are seen, with moderate to severe disc space narrowing at C3-C4, C4-C5, C5-C6, and C6-C7. Posteriorly directed endplate osteophytes are seen, which are worst at the C6-C7 level. Soft tissues: Prevertebral soft tissues are normal in thickness. No paravertebral hematomas. No apical pneumothoraces. Atherosclerotic calcification is noted. IMPRESSION: Negative for acute fracture. Relatively prominent cervical spine degenerative changes are seen. Dictated by: Adalid Carolina M.D. on 07/12/2021 at 14:52 Approved by: Adalid Carolina M.D. on 07/12/2021 at 14:53
--- NOTE | 2021-07-12 15:05 | DI.CT.S_ITS ---
PROCEDURE: CT HEAD/BRAIN WO CON INDICATIONS: Fall with head injury TECHNIQUE: Noncontrast 4.5 mm thick angled axial sections acquired from the foramen magnum to the vertex, with coronal and sagittal reformats. For radiation dose reduction, the following was used: automated exposure control, adjustment of mA and/or kV according to patient size. COMPARISON: [facility], MR, MR HEAD/BRAIN WO CON, 06/17/2021, 14:04. [facility], CT, CT ANGIO HEAD AND NECK, 03/21/2021, 10:59. [facility], CT, CT STROKE, 03/21/2021, 10:57. [facility], CT, CT HEAD/BRAIN WO CON, 09/21/2020, 11:18. [facility], CT, CT HEAD/BRAIN WO CON, 06/17/2021, 16:04. FINDINGS: Image quality: This examination is limited by involuntary motion artifact. Images are repeated, with some improvement. CSF spaces: Basal cisterns are patent. No extra-axial fluid collections. The ventricles are symmetric in size and shape. Brain: No intracranial bleeds or masses. There is cerebral volume loss for age, with resultant ventricular and sulcal prominence. There are periventricular and deep white matter chronic small vessel ischemic changes. There is intracranial internal carotid artery atherosclerosis. Skull and face: Soft tissue hematoma with laceration can be seen involving the right posterior parietal scalp. No underlying calvarial fracture can be seen. Calvarium and visualized facial bones appear intact, without suspicious lesions. Sinuses: Visualized sinuses and mastoids are clear. IMPRESSION: Right posterior scalp hematoma with laceration. No associated fracture can be seen. No acute intracranial hemorrhage is seen. No acute intracranial process is seen. Note is made of age-appropriate brain parenchymal volume loss and chronic small vessel ischemic changes. Motion limited study. Dictated by: Adalid Carolina M.D. on 07/12/2021 at 14:54 Approved by: Adalid Carolina M.D. on 07/12/2021 at 14:55
--- NOTE | 2021-07-12 15:05 | ED.FALL ---
HPI - Fall General Chief Complaint: Fall Stated Complaint: Tripped,fell,needs sutures,no thinners,no loc Time Seen by Provider: 07/12/21 15:02 Source: EMS Mode of arrival: EMS History of Present Illness HPI Narrative: Patient is a 70-year-old female who is here for evaluation of injuries that she sustained after she tripped and fell and hit her head. Patient does have issues with cognitive decline is unable to provide any HPI. Patient's daughter is at bedside. She is not on blood thinners. Is no reports of any loss of consciousness. Patient does arrive in a cervical collar. Related Data Home Medications Medication Instructions Recorded Confirmed acetaminophen 325 mg capsule 650 mg PO Q4H PRN 01/23/20 04/15/21 carbidopa 25 mg-levodopa 100 mg 0.5 tab PO TID tab 05/19/21 tablet Previous Rx's Medication Instructions Recorded calcium carbonate 600 mg calcium 600 mg PO DAILY #180 tab 10/04/20 (1,500 mg) tablet (Calcium) cholecalciferol (vitamin D3) 25 See Rx Instructions .ROUTE 10/04/20 mcg (1,000 unit) tablet (Vitamin .COMPLEX #180 tab D3) omeprazole 20 mg capsule,delayed 20 mg PO DAILY #90 cap 10/04/20 release escitalopram oxalate 20 mg tablet See Rx Instructions .ROUTE 11/05/20 .COMPLEX #90 tab magnesium hydroxide 400 mg/5 mL See Rx Instructions .ROUTE 11/21/20 oral suspension (Milk of Magnesia) .COMPLEX #473 ml docusate sodium 100 mg capsule 100 mg PO DAILY #90 cap 03/10/21 (Colace) Disabled Parking Permit See Rx Instructions .ROUTE 04/15/21 .COMPLEX #1 unit albuterol sulfate 90 mcg/actuation 2 puff INHALATION Q4-6H PRN #6.7 05/20/21 aerosol inhaler (Ventolin HFA) gram acetaminophen 325 mg capsule 650 mg PO DAILY #180 cap 07/07/21 levothyroxine 75 mcg tablet 75 mcg PO DAILY #90 tab 07/07/21 Allergies Allergy/AdvReac Type Severity Reaction Status Date / Time Penicillins Allergy Mild Verified 04/15/21 12:18 Review of Systems Review of Systems ROS Unobtainable: Unobtainable due to mental condition Integumentary/Breasts Skin/Breast: Reports system reviewed and no additional complaints, except as documented Hematologic/Lymphatic On Anticoagulants: No Patient History Medical History Advanced care planning/counseling discussion Allergies Anxiety Asthma Carpal tunnel syndrome Cataracts, bilateral Cognitive decline CPAP (continuous positive airway pressure) dependence Dementia (~2016) Depression Encounter for HCV screening test for high risk patient Facial numbness FH: GRAY-BSO (total abdominal hysterectomy and bilateral salpingo-oophorectomy) Frailty syndrome in geriatric patient GERD (gastroesophageal reflux disease) Headache History of urinary incontinence Hypothyroidism 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 Mild diastolic dysfunction Noncompliance with CPAP treatment Rectal prolapse Recurrent falls Restless leg syndrome Retinal detachment (~2014) Sleep apnea Stool incontinence TIA (transient ischemic attack) (~2014) Urinary frequency Urinary incontinence Weight loss observed on examination Surgical History H/O eye surgery Family History Father History of heart disease Hypertension Mother History of heart disease Hypertension Sister Diabetes mellitus Hypothyroidism Social History Smoking Status: Never smoker Smoking Status: Never smoker alcohol intake frequency: holidays/special occasions only Substance Use Type: does not use Exam Initial Vital Signs Initial Vital Signs: Vital Signs Pulse Rate 73 07/12/21 13:56 Blood Pressure 153/69 H 07/12/21 13:56 Pulse Oximetry 94 07/12/21 13:56 Const General: healthy appearing HENNH Head: laceration Resp Effort & Inspection: normal respiratory effort Cardio Rate: regular rate Skin Other: 2 cm laceration right occipital region. Extrem General: normal to inspection Procedures Laceration Repair Laceration 1: Site: scalp Side (If applicable): right Size (cm): 2 Description: linear Depth: simple, single layer Local Anesthetic: lidocaine 1% and with bicarb Amount of anesthesia used (mL): 5 Skin layer closed with: roshan Course Orders Ordered: ED Orders 07/12/21 15:05 CT cervical spine wo con Stat CT head/brain wo con Stat Discontinued Medications Lidocaine/Sodium Bicarbonate (Lido 1%/Sod Bicarb 8.4% (10ml) 10 Ml Syringe) 10 ml INJ NOW ONE Stop: 07/12/21 16:03 Last Admin: 07/12/21 16:19 Dose: 10 ml Documented by: SKYLER Vital Signs Vital signs: Vital Signs - 8 hr 07/12/21 13:56 07/12/21 14:01 07/12/21 15:35 Pulse Rate 73 74 66 Respiratory Rate 18 Blood Pressure 153/69 H 153/69 H 161/66 H Pulse Oximetry 94 100 99 07/12/21 16:21 Pulse Rate 66 Respiratory Rate Blood Pressure 163/71 H Pulse Oximetry MDM - Fall Imaging Data CT scan - head: Radiologist's Impression: [address] [address] [address] Scan Report Signed Patient: Loraine Chinchilla MR#: [id number] : 1950 Acct:[id number] Age/Sex: 70 / F Date of Service: 07/12/21 Loc: ED Accession Number: [id number] ?? Procedure: CT cervical spine wo con Ordering Provider: Catarino Contreras D.O. PROCEDURE:? CT CERVICAL SPINE WO CON ? INDICATIONS:? Fall with neck pain ? TECHNIQUE:? Noncontrast 3 mm thick sections acquired from the skull base to the T4 level.? Sagittal and coronal reformats were then constructed.? For radiation dose reduction, the following was used:? automated exposure control, adjustment of mA and/or kV according to patient size.? ? COMPARISON:? [facility], CT, CT ANGIO HEAD AND NECK, 03/21/2021, 10:59.? [facility], CT, CT HEAD/BRAIN WO CON, 07/12/2021, 15:08.? [facility], CT, CT CERVICAL SPINE WO CON, 06/17/2021, 16:04. ? FINDINGS:? Image quality:? This examination is somewhat limited by quantum mottle artifact.? ? Bones:? No fractures or dislocations.? Visualized superior ribs are intact.? ? Degenerative changes are seen, with moderate to severe disc space narrowing at C3-C4, C4-C5, C5-C6, and C6-C7.? Posteriorly directed endplate osteophytes are seen, which are worst at the C6-C7 level. ? Soft tissues:? Prevertebral soft tissues are normal in thickness.? No paravertebral hematomas.? No apical pneumothoraces.? Atherosclerotic calcification is noted.? ? ? IMPRESSION:? Negative for acute fracture. ? Relatively prominent cervical spine degenerative changes are seen. ? ? ? Dictated by: Adalid Carolina M.D. on 07/12/2021 at 14:52 ? ? Approved by: Adalid Carolina M.D. on 07/12/2021 at 14:53? CT - cervical spine: Radiologist's Impression: Launch?[place] [address] CT Scan Report Signed Patient: Loraine Chinchilla MR#: [id number] : 1950 Acct:[id number] Age/Sex: 70 / F Date of Service: 07/12/21 Loc: ED Accession Number: [id number] ?? Procedure: CT head/brain wo con Ordering Provider: Catarino Contreras D.O. PROCEDURE:? CT HEAD/BRAIN WO CON ? INDICATIONS:? Fall with head injury ? TECHNIQUE:? Noncontrast 4.5 mm thick angled axial sections acquired from the foramen magnum to the vertex, with coronal and sagittal reformats.? For radiation dose reduction, the following was used:? automated exposure control, adjustment of mA and/or kV according to patient size.? ? COMPARISON:? [facility], MR, MR HEAD/BRAIN WO CON, 06/17/2021, 14:04.? [facility], CT, CT ANGIO HEAD AND NECK, 03/21/2021, 10:59.? [facility], CT, CT STROKE, 03/21/2021, 10:57.? [facility], CT, CT HEAD/BRAIN WO CON, 09/21/2020, 11:18.? [facility], CT, CT HEAD/BRAIN WO CON, 06/17/2021, 16:04. ? FINDINGS:? Image quality:? This examination is limited by involuntary motion artifact.? Images are repeated, with some improvement.? ? CSF spaces:? Basal cisterns are patent.? No extra-axial fluid collections.? The ventricles are symmetric in size and shape.? ? Brain:? No intracranial bleeds or masses.? There is cerebral volume loss for age, with resultant ventricular and sulcal prominence.? There are periventricular and deep white matter chronic small vessel ischemic changes.? There is intracranial internal carotid artery atherosclerosis.? ? Skull and face:? Soft tissue hematoma with laceration can be seen involving the right posterior parietal scalp.? No underlying calvarial fracture can be seen.? Calvarium and visualized facial bones appear intact, without suspicious lesions.? ? Sinuses:? Visualized sinuses and mastoids are clear.? ? ? IMPRESSION:? Right posterior scalp hematoma with laceration.? No associated fracture can be seen. ? No acute intracranial hemorrhage is seen.? ? No acute intracranial process is seen.? ? Note is made of age-appropriate brain parenchymal volume loss and chronic small vessel ischemic changes. ? Motion limited study.? ? Dictated by: Adalid Carolina M.D. on 07/12/2021 at 14:54 ? ? Approved by: Adalid Carolina M.D. on 07/12/2021 at 14:55? MDM Narrative Medical decision making narrative: Patient is at her baseline mental status. Head CT and cervical spine CT were unremarkable. Cervical collar was removed after these resulted. The laceration was closed as described above. There appears to be no other injuries from the fall. Patient's daughter was given care instructions return precautions and follow-up instructions. She expressed understanding and agreement. Discharge Plan Departure Patient Disposition: Home Clinical Impression: Laceration of scalp Instructions: DI for Laceration Repair -- [place] Activity Restrictions/Additional Instructions: The roshan will need to be removed in approximately 10 days. She can shower like normal but be careful with combing her hair. Return to the emergency department for any new or worsening symptoms. Prescriptions: No Action calcium carbonate [Calcium 600] 600 mg calcium (1,500 mg) tablet 600 mg PO DAILY Qty: 180 3RF Rx Instructions: Take 1 tab by mouth twice daily for prevention of osteoporosis omeprazole 20 mg capsule,delayed release(DR/EC) 20 mg PO DAILY Qty: 90 3RF Rx Instructions: Take 1 tablet daily for heartburn cholecalciferol (vitamin D3) [Vitamin D3] 25 mcg (1,000 unit) tablet See Rx Instructions .ROUTE .COMPLEX Qty: 180 3RF Dose Instruction: TAKE (1) TABLET BY MOUTH TWICE DAILY. Rx Instructions: TAKE (1) TABLET BY MOUTH TWICE DAILY. escitalopram oxalate 20 mg tablet See Rx Instructions .ROUTE .COMPLEX Qty: 90 3RF Dose Instruction: TAKE 1 TABLET BY MOUTH ONCE DAILY. Rx Instructions: TAKE 1 TABLET BY MOUTH ONCE DAILY. magnesium hydroxide [Milk of Magnesia] 400 mg/5 mL suspension See Rx Instructions .ROUTE .COMPLEX Qty: 473 0RF Dose Instruction: TAKE 30ML BY MOUTH DAILY NEEDED FOR CONSTIPATION IF NO BOWEL MOVEMENT AFTER 4 DAYS. Rx Instructions: TAKE 30ML BY MOUTH DAILY NEEDED FOR CONSTIPATION IF NO BOWEL MOVEMENT AFTER 4 DAYS. carbidopa-levodopa 25-100 mg tablet 0.5 tab PO TID 0RF albuterol sulfate [Ventolin HFA] 90 mcg/actuation HFA aerosol inhaler 2 puff INHALATION Q4-6H PRN (Reason: shortness of breath or wheezing) Qty: 6.7 6RF Rx Instructions: 2 puffs inhaled every 4 hours as needed levothyroxine 75 mcg tablet 75 mcg PO DAILY Qty: 90 1RF Rx Instructions: Take 1 tablet by mouth will on an empty stomach daily 30 minutes prior to eating. acetaminophen 325 mg capsule 650 mg PO DAILY Qty: 180 1RF Rx Instructions: Take 2 tabs by mouth routinely each morning, NTE 3 grams in 24 hours total acetaminophen 325 mg capsule 650 mg PO Q4H PRN (Reason: pain) 0RF Label Comments: NTE 3 grams total in 24 hours Disabled Parking Permit See Rx Instructions .ROUTE .COMPLEX Qty: 1 0RF Rx Instructions: I find this patient to be medically disabled and qualify for disabled parking as indicated and signed on the accompanying disabled parking application for individuals. docusate sodium [Colace] 100 mg capsule 100 mg PO DAILY Qty: 90 3RF Rx Instructions: HOLD FOR DIARRHEA Referrals: Yvette Jones ARNP [Primary Care Provider] -
[2021-07-12 15:35] VITALS: BP 161/66; PULSE 66; O2SAT 99
[2021-07-12] MEDS: LIDO 1%/SOD BICARB 8.4% (10ML) 10 ML SYRINGE INJ (16:19)
[2021-07-12 16:21] VITALS: BP 163/71; PULSE 66
== END 2021-07-12 16:33 | disposition home or self-care (01) ==
PROVIDERS: Emergency Provider Emergency Medicine; PCP Nurse Practitioner
DX: S01.01XA Laceration without foreign body of scalp, initial encounter (principal); M54.2 Cervicalgia; W01.0XXA Fall on same level from slipping, tripping and stumbling without subsequent striking against object, initial encounter
CPT/HCPCS: 12011; 70450; 72125; 99284

== ENCOUNTER 2021-08-09 20:19 | Emergency (ER) | payer MEDICARE, OTHER, SELFPAY ==
[2021-08-09 20:30] VITALS: BP 139/62; PULSE 80; RESP 16; TEMP 36.6; O2SAT 99
--- NOTE | 2021-08-09 20:45 | PC.NURSE ---
Pt reports headache, flacc 1. Palpated extremities, abdomen, pelvis and pt denied pain. Pt is baseline dementia.
[2021-08-09 23:12] VITALS: BP 173/78; PULSE 70; RESP 18; O2SAT 96
--- NOTE | 2021-08-09 23:56 | ED_ITS ---
HPI - Fall General Chief Complaint: Fall Stated Complaint: Fall Time Seen by Provider: 08/09/21 20:38 Source: EMS Mode of arrival: EMS History of Present Illness HPI Narrative: 70-year-old lady with Parkinson's related dementia and multiple recent falls currently in a dementia unit. Fell hitting the back of the left side of her head and her lip today. This was a witnessed fall and staff for immediately available to help her to the ground and note that she did not lose consciousness. She comes over for further evaluation. Related Data Home Medications Medication Instructions Recorded Confirmed acetaminophen 325 mg capsule 650 mg PO Q4H PRN pain 01/23/20 04/15/21 carbidopa 25 mg-levodopa 100 mg 0.5 tab PO TID 05/19/21 tablet Previous Rx's Medication Instructions Recorded calcium carbonate 600 mg calcium 600 mg PO DAILY #180 tabs 10/04/20 (1,500 mg) tablet (Calcium) cholecalciferol (vitamin D3) 25 See Rx Instructions .Route 10/04/20 mcg (1,000 unit) tablet (Vitamin .COMPLEX #180 tabs D3) omeprazole 20 mg capsule,delayed 20 mg PO DAILY #90 caps 10/04/20 release escitalopram oxalate 20 mg tablet See Rx Instructions .Route 11/05/20 .COMPLEX #90 tabs magnesium hydroxide 400 mg/5 mL See Rx Instructions .Route 11/21/20 oral suspension (Milk of Magnesia) .COMPLEX #473 mL docusate sodium 100 mg capsule 100 mg PO DAILY #90 caps 03/10/21 (Colace) Disabled Parking Permit See Rx Instructions .Route 04/15/21 .COMPLEX #1 unit albuterol sulfate 90 mcg/actuation 2 puff inhalation Q4-6H PRN 05/20/21 aerosol inhaler (Ventolin HFA) shortness of breath or wheezing #6.7 grams acetaminophen 325 mg capsule 650 mg PO DAILY #180 caps 07/07/21 levothyroxine 75 mcg tablet 75 mcg PO DAILY Thyroid 07/07/21 replacement #90 tabs Allergies Allergy/AdvReac Type Severity Reaction Status Date / Time Penicillins Allergy Mild Verified 04/15/21 12:18 Review of Systems Review of Systems ROS Unobtainable: Unobtainable due to medical condition Patient History Medical History Advanced care planning/counseling discussion Allergies Anxiety Asthma Carpal tunnel syndrome Cataracts, bilateral Cognitive decline CPAP (continuous positive airway pressure) dependence Dementia (~2016) Depression Encounter for HCV screening test for high risk patient Facial numbness FH: GRAY-BSO (total abdominal hysterectomy and bilateral salpingo-oophorectomy) Frailty syndrome in geriatric patient GERD (gastroesophageal reflux disease) Headache History of urinary incontinence Hypothyroidism 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 Mild diastolic dysfunction Noncompliance with CPAP treatment Rectal prolapse Recurrent falls Restless leg syndrome Retinal detachment (~2014) Sleep apnea Stool incontinence TIA (transient ischemic attack) (~2014) Urinary frequency Urinary incontinence Weight loss observed on examination Surgical History H/O eye surgery Family History Father History of heart disease Hypertension Mother History of heart disease Hypertension Sister Diabetes mellitus Hypothyroidism Social History Smoking Status: Never smoker Smoking Status: Never smoker alcohol intake frequency: holidays/special occasions only Substance Use Type: does not use Exam Initial Vital Signs Initial Vital Signs: Vital Signs Temperature 98 F 08/09/21 20:30 Pulse Rate 80 08/09/21 20:30 Respiratory Rate 16 08/09/21 20:30 Blood Pressure 139/62 08/09/21 20:30 Pulse Oximetry 99 08/09/21 20:30 Oxygen Delivery Method 08/09/21 20:30 General: Chronically ill-appearing, frail, not oriented to person time or place HEENT: Dry mucous membranes, normal sclera with reactive pupils, she has a well-healing laceration on the right side of the occiput from about a week ago. She has a new contusion on the left side of the occiput with no abrasion or bleeding. She has a small abrasion to the right side of her upper lip that does not need repair and does not go through to buccal mucosa. There are no obvious dental abnormalities at the site. Respiratory: Lungs are clear to auscultation, no wheezing no rales no rhonchi. Full and symmetrical air movement Cardiac: Regular rate and rhythm no murmurs no bruits Abdomen: Soft, nontender, good bowel tones, no flank pain Skin: Warm and dry, multiple bruises in various stages of healing around her elbows hips and knees none appear to be new Neurologic: She is flexed into a position Extremities: Well perfused, no obvious bony injuries. Psych: Awake, not oriented to person time replace Course Vital Signs Vital signs: Vital Signs - 8 hr 08/09/21 20:30 08/09/21 23:12 Temperature 98 F Pulse Rate 80 70 Respiratory Rate 16 18 Blood Pressure 139/62 173/78 H Pulse Oximetry 99 96 Oxygen Delivery Method Room Air Room Air MDM - Fall MDM Narrative Medical decision making narrative: 70-year-old woman with advanced Parkinson's related dementia with multiple falls recently. She had a witnessed an attempted to prevent fall today but unfortunately she did hit the back of her head with a minor abrasion needing no laceration repair. She has a minor abrasion to her right upper lip again needing no repair. She has no obvious pain behaviors with palpation along spine ribcage upper or lower extremities or pelvic ring. Will contact her care facility and they will come to escort her back home. Discharge Plan Departure Patient Disposition: Home Clinical Impression: Fall Contusion of head Qualifiers: Encounter type: initial encounter Contusion of head detail: scalp Qualified C ode(s): S00.03XA - Contusion of scalp, initial encounter Contusion of face Qualifiers: Encounter type: initial encounter Qualified Code(s): S00.83XA - Contusion of other part of head, initial encounter Activity Restrictions/Additional Instructions: Loraine was evaluated in the emergency department The contusion to the left side of her head does not need repair. The small abrasion to the right side of her upper lip similarly, does not need repair. With palpation of her entire body, I did not find any new complaints of pain or obvious injuries. She is safe to return back to her living facility Prescriptions: No Action calcium carbonate [Calcium 600] 600 mg calcium (1,500 mg) tablet 600 mg PO DAILY Qty: 180 3RF Rx Instructions: Take 1 tab by mouth twice daily for prevention of osteoporosis omeprazole 20 mg capsule,delayed release(DR/EC) 20 mg PO DAILY Qty: 90 3RF Rx Instructions: Take 1 tablet daily for heartburn cholecalciferol (vitamin D3) [Vitamin D3] 25 mcg (1,000 unit) tablet See Rx Instructions .ROUTE .COMPLEX Qty: 180 3RF Dose Instruction: TAKE (1) TABLET BY MOUTH TWICE DAILY. Rx Instructions: TAKE (1) TABLET BY MOUTH TWICE DAILY. escitalopram oxalate 20 mg tablet See Rx Instructions .ROUTE .COMPLEX Qty: 90 3RF Dose Instruction: TAKE 1 TABLET BY MOUTH ONCE DAILY. Rx Instructions: TAKE 1 TABLET BY MOUTH ONCE DAILY. magnesium hydroxide [Milk of Magnesia] 400 mg/5 mL suspension See Rx Instructions .ROUTE .COMPLEX Qty: 473 0RF Dose Instruction: TAKE 30ML BY MOUTH DAILY NEEDED FOR CONSTIPATION IF NO BOWEL MOVEMENT AFTER 4 DAYS. Rx Instructions: TAKE 30ML BY MOUTH DAILY NEEDED FOR CONSTIPATION IF NO BOWEL MOVEMENT AFTER 4 DAYS. carbidopa-levodopa 25-100 mg tablet 0.5 tab PO TID albuterol sulfate [Ventolin HFA] 90 mcg/actuation HFA aerosol inhaler 2 puff INHALATION Q4-6H PRN (Reason: shortness of breath or wheezing) Qty: 6.7 6RF Rx Instructions: 2 puffs inhaled every 4 hours as needed levothyroxine 75 mcg tablet 75 mcg PO DAILY Qty: 90 1RF Rx Instructions: Take 1 tablet by mouth will on an empty stomach daily 30 minutes prior to eating. acetaminophen 325 mg capsule 650 mg PO DAILY Qty: 180 1RF Rx Instructions: Take 2 tabs by mouth routinely each morning, NTE 3 grams in 24 hours total acetaminophen 325 mg capsule 650 mg PO Q4H PRN (Reason: pain) Label Comments: NTE 3 grams total in 24 hours Disabled Parking Permit See Rx Instructions .ROUTE .COMPLEX Qty: 1 0RF Rx Instructions: I find this patient to be medically disabled and qualify for disabled parking as indicated and signed on the accompanying disabled parking application for individuals. docusate sodium [Colace] 100 mg capsule 100 mg PO DAILY Qty: 90 3RF Rx Instructions: HOLD FOR DIARRHEA Referrals: Yvette Jones ARNP [Primary Care Provider] -
[2021-08-10 00:11] VITALS: BP 150/70
== END 2021-08-10 00:27 | disposition home or self-care (01) ==
PROVIDERS: Emergency Provider Emergency Medicine; PCP Nurse Practitioner
DX: S00.83XA Contusion of other part of head, initial encounter (principal); S00.03XA Contusion of scalp, initial encounter; W19.XXXA Unspecified fall, initial encounter; G20 Parkinson's disease; F02.80 Dementia in other diseases classified elsewhere, unspecified severity, without behavioral disturbance, psychotic disturbance, mood disturbance, and anxiety
CPT/HCPCS: 99281

== ENCOUNTER 2021-11-28 10:05 | Emergency (ER) | payer MEDICARE, OTHER, SELFPAY ==
[2021-11-28 10:12] VITALS: BP 200/93; PULSE 81; RESP 14; TEMP 37; O2SAT 99
--- NOTE | 2021-11-28 10:16 | DI.CT.S_ITS ---
PROCEDURE: CT CERVICAL SPINE WO CON INDICATIONS: fall TECHNIQUE: Noncontrast 3 mm thick sections acquired from the skull base to the T4 level. Sagittal and coronal reformats were then constructed. For radiation dose reduction, the following was used: automated exposure control, adjustment of mA and/or kV according to patient size. COMPARISON: [facility], CT, CT CERVICAL SPINE WITHOUT CONTRAST, 07/27/2021, 15:35. FINDINGS: Image quality: Excellent. Bones: No fractures or dislocations. Visualized superior ribs are intact. Advanced moderate to severe degenerative changes as seen on previous exams. Soft tissues: Prevertebral soft tissues are normal in thickness. No paravertebral hematomas. No apical pneumothoraces. IMPRESSION: No CT evidence of acute traumatic cervical spine injury. Dictated by: Buzz Alvarado M.D. on 11/28/2021 at 10:49 Approved by: Buzz Alvarado M.D. on 11/28/2021 at 10:50
--- NOTE | 2021-11-28 10:16 | DI.CT.S_ITS ---
PROCEDURE: CT HEAD/BRAIN WO CON INDICATIONS: Trauma, fall TECHNIQUE: Noncontrast 4.5 mm thick angled axial sections acquired from the foramen magnum to the vertex, with coronal and sagittal reformats. For radiation dose reduction, the following was used: automated exposure control, adjustment of mA and/or kV according to patient size. COMPARISON: [facility], CT, CT HEAD WITHOUT CONTRAST, 07/27/2021, 15:35. FINDINGS: Image quality: Excellent. CSF spaces: Basal cisterns are patent. No extra-axial fluid collections. The ventricles are symmetric in size and shape. Brain: No intracranial bleeds or masses. There is advanced cerebral volume loss for age, with resultant ventricular and sulcal prominence. There are severe periventricular and deep white matter chronic small vessel ischemic changes. There is intracranial internal carotid artery atherosclerosis. Skull and face: Calvarium and visualized facial bones appear intact, without suspicious lesions. Sinuses: Visualized sinuses and mastoids are clear. IMPRESSION: No acute intracranial finding. Dictated by: Buzz Alvarado M.D. on 11/28/2021 at 10:44 Approved by: Buzz Alvarado M.D. on 11/28/2021 at 10:46
--- NOTE | 2021-11-28 10:41 | ED.FALL ---
HPI - Fall General Chief Complaint: Fall Stated Complaint: Fell foward Time Seen by Provider: 11/28/21 10:36 Source: EMS Mode of arrival: EMS History of Present Illness HPI Narrative: Patient brought in by EMS from [facility]. She fell out of her wheelchair, forward. Has laceration to the face. Patient was not wearing her helmet. She is supposed to be wearing a helmet. Patient is DNR/DNI with comfort measures only. Patient is not on any blood thinners. Patient has laceration to the right eyebrow. Vertical direction. Related Data Home Medications Medication Instructions Recorded Confirmed acetaminophen 325 mg capsule 650 mg PO Q4H PRN pain 01/23/20 08/11/21 Previous Rx's Medication Instructions Recorded omeprazole 20 mg capsule,delayed 20 mg PO DAILY #90 caps 10/04/20 release escitalopram oxalate 20 mg tablet See Rx Instructions .Route 11/05/20 .COMPLEX #90 tabs magnesium hydroxide 400 mg/5 mL See Rx Instructions .Route 11/21/20 oral suspension (Milk of Magnesia) .COMPLEX #473 mL docusate sodium 100 mg capsule 100 mg PO DAILY #90 caps 03/10/21 (Colace) Disabled Parking Permit See Rx Instructions .Route 04/15/21 .COMPLEX #1 unit albuterol sulfate 90 mcg/actuation 2 puff inhalation Q4-6H PRN 05/20/21 aerosol inhaler (Ventolin HFA) shortness of breath or wheezing #6.7 grams acetaminophen 325 mg capsule 650 mg PO DAILY #180 caps 07/07/21 levothyroxine 75 mcg tablet 75 mcg PO DAILY Thyroid 07/07/21 replacement #90 tabs quetiapine 25 mg tablet (Seroquel) 25 mg PO BID #60 tabs 08/11/21 Allergies Allergy/AdvReac Type Severity Reaction Status Date / Time Penicillins Allergy Mild Verified 08/11/21 15:39 Review of Systems Review of Systems ROS Unobtainable: Unobtainable due to mental condition Patient History Medical History Advanced care planning/counseling discussion Allergies Anxiety Asthma Carpal tunnel syndrome Cataracts, bilateral Cognitive decline CPAP (continuous positive airway pressure) dependence Dementia (~2016) Depression Encounter for HCV screening test for high risk patient Facial numbness FH: GRAY-BSO (total abdominal hysterectomy and bilateral salpingo-oophorectomy) Frailty syndrome in geriatric patient GERD (gastroesophageal reflux disease) Headache History of urinary incontinence Hypothyroidism 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 Mild diastolic dysfunction Noncompliance with CPAP treatment Parkinson disease Rectal prolapse Recurrent falls Recurrent falls Restless leg syndrome Retinal detachment (~2014) Sleep apnea Stool incontinence TIA (transient ischemic attack) (~2014) Urinary frequency Urinary incontinence Weight loss observed on examination Weight loss of more than 10% body weight Surgical History H/O eye surgery Family History Father History of heart disease Hypertension Mother History of heart disease Hypertension Sister Diabetes mellitus Hypothyroidism Social History Smoking Status: Never smoker Smoking Status: Never smoker alcohol intake frequency: holidays/special occasions only Substance Use Type: does not use Exam Narrative Exam Narrative: GENERAL: in no distress, not toxic not dyspneic HEAD: Normocephalic. 2 cm vertical laceration on the lateral right eyebrow. No bone injury seen. No foreign body seen. Based visualized. Bloodless field. EYES: Pupils equal round No scleral icterus. ENT: Mucous membranes moist. NECK: Trachea midline. CARDIOVASCULAR: Regular rate and rhythm without murmurs RESPIRATORY: Clear to auscultation. Breath sounds equal bilaterally. No wheezes, rales, or rhonchi. GASTROINTESTINAL: Abdomen soft, non-tender NEURO: Patient answers to her name. Does follow instructions. SKIN: Warm and dry PSYCH: Not anxious, is cooperative Initial Vital Signs Initial Vital Signs: Vital Signs Temperature 98.6 F 11/28/21 10:12 Pulse Rate 81 11/28/21 10:12 Respiratory Rate 14 11/28/21 10:12 Blood Pressure 200/93 H 11/28/21 10:12 Pulse Oximetry 99 11/28/21 10:12 Oxygen Delivery Method 11/28/21 10:12 Procedures Laceration Repair Laceration 1: Time of procedure: 11:38 Site: other (Right eyebrow) Side (If applicable): right Size (cm): 2 Description: linear Depth: simple, single layer Local Anesthetic: lidocaine 1% and with epi Amount of anesthesia used (mL): 2 Pre-repair: wound explored, irrigated extensively, deep structures intact and cleansed with chlorhexadine Skin layer closed with: nylon Skin layer suture size: 5-0 Number of sutures: 5 Technique: simple, interrupted Course Course Course Narrative: No new issues during course of stay Orders Ordered: Discontinued Medications Lidocaine/Epinephrine (Lidocaine 1% W/Epi) 4 ml INJ INTRA-OP ONE Stop: 11/28/21 11:09 Last Admin: 11/28/21 11:11 Dose: Not Given Documented By: ARLEN Lidocaine/Epinephrine (Lidocaine 2% W/Epi Inj) 5 ml INJ INTRA-OP ONE Stop: 11/28/21 11:12 Last Admin: 11/28/21 11:14 Dose: 5 ml Documented By: ARLEN Reevaluation(s) Reevaluation #1: Patient tolerated laceration repair very well. Not toxic at discharge. Time: 11:39 Vital Signs Vital signs: Vital Signs - 8 hr 11/28/21 10:12 Temperature 98.6 F Pulse Rate 81 Respiratory Rate 14 Blood Pressure 200/93 H Pulse Oximetry 99 Oxygen Delivery Method Room Air MDM - Fall Differential Diagnosis Differential diagnosis: Likely concussion with loss of consciousness, concussion without loss of consciousness and other (Head injury/skin laceration/fracture/intracranial bleed/cervical strain) Imaging Data CT scan - head: Radiologist's Impression: [place] [address] CT Scan Report Signed Patient: Loraine Chinchilla MR#: [id number] : 1950 Acct:[id number] Age/Sex: 71 / F Date of Service: 11/28/21 Loc: ED Accession Number: [id number] ?? Procedure: CT head/brain wo con Ordering Provider: Abdiaziz Penny MD PROCEDURE:? CT HEAD/BRAIN WO CON ? INDICATIONS:? Trauma, fall ? TECHNIQUE:? Noncontrast 4.5 mm thick angled axial sections acquired from the foramen magnum to the vertex, with coronal and sagittal reformats.? For radiation dose reduction, the following was used:? automated exposure control, adjustment of mA and/or kV according to patient size.? ? COMPARISON:? [facility], CT, CT HEAD WITHOUT CONTRAST, 07/27/2021, 15:35. ? FINDINGS:? Image quality:? Excellent.? ? CSF spaces:? Basal cisterns are patent.? No extra-axial fluid collections.? The ventricles are symmetric in size and shape.? ? Brain:? No intracranial bleeds or masses.? There is advanced cerebral volume loss for age, with resultant ventricular and sulcal prominence.? There are severe periventricular and deep white matter chronic small vessel ischemic changes.? There is intracranial internal carotid artery atherosclerosis.? ? Skull and face:? Calvarium and visualized facial bones appear intact, without suspicious lesions.? ? Sinuses:? Visualized sinuses and mastoids are clear.? ? IMPRESSION:? No acute intracranial finding. ? ? Dictated by: Buzz Alvarado M.D. on 11/28/2021 at 10:44 ? ? Approved by: Buzz Alvarado M.D. on 11/28/2021 at 10:46 ? CT - cervical spine: Radiologist's Impression: [place] [address] CT Scan Report Signed Patient: Loraine Chinchilla MR#: [id number] : 1950 Acct:[id number] Age/Sex: 71 / F Date of Service: 11/28/21 Loc: ED Accession Number: [id number] ?? Procedure: CT cervical spine wo con Ordering Provider: Abdiaziz Penny MD PROCEDURE:? CT CERVICAL SPINE WO CON ? INDICATIONS:? fall ? TECHNIQUE:? Noncontrast 3 mm thick sections acquired from the skull base to the T4 level.? Sagittal and coronal reformats were then constructed.? For radiation dose reduction, the following was used:? automated exposure control, adjustment of mA and/or kV according to patient size.? ? COMPARISON:? [facility], CT, CT CERVICAL SPINE WITHOUT CONTRAST, 07/27/2021, 15:35. ? FINDINGS:? Image quality:? Excellent.? ? Bones:? No fractures or dislocations.? Visualized superior ribs are intact.? Advanced moderate to severe degenerative changes as seen on previous exams. ? Soft tissues:? Prevertebral soft tissues are normal in thickness.? No paravertebral hematomas.? No apical pneumothoraces.? ? ? IMPRESSION:? No CT evidence of acute traumatic cervical spine injury. ? Dictated by: Buzz Alvarado M.D. on 11/28/2021 at 10:49 ? ? Approved by: Buzz Alvarado M.D. on 11/28/2021 at 10:50 ? ECG Data Interpretation: Normal sinus rhythm rate [address] elevation or depression MDM Narrative Medical decision making narrative: Appropriate for discharge home, exam and imaging otherwise reassuring. Hospice care did call and did not for no blood work desired. Only repair of skin wound and discharge back home. Discharge Plan Departure Patient Disposition: Home Clinical Impression: Laceration of eyebrow, Head injury Instructions: DI for Laceration Repair -- Simple, DI for Closed Head Injury Activity Restrictions/Additional Instructions: Change dressing daily with warm soap and water and apply thin layer of topical antibiotic. See family doctor or return here in 7-10 days for removal of 5 stitches. Return if worse if any questions or concerns Prescriptions: No Action omeprazole 20 mg capsule,delayed release(DR/EC) 20 mg PO DAILY Qty: 90 3RF Rx Instructions: Take 1 tablet daily for heartburn escitalopram oxalate 20 mg tablet See Rx Instructions .ROUTE .COMPLEX Qty: 90 3RF Dose Instruction: TAKE 1 TABLET BY MOUTH ONCE DAILY. Rx Instructions: TAKE 1 TABLET BY MOUTH ONCE DAILY. magnesium hydroxide [Milk of Magnesia] 400 mg/5 mL suspension See Rx Instructions .ROUTE .COMPLEX Qty: 473 0RF Dose Instruction: TAKE 30ML BY MOUTH DAILY NEEDED FOR CONSTIPATION IF NO BOWEL MOVEMENT AFTER 4 DAYS. Rx Instructions: TAKE 30ML BY MOUTH DAILY NEEDED FOR CONSTIPATION IF NO BOWEL MOVEMENT AFTER 4 DAYS. albuterol sulfate [Ventolin HFA] 90 mcg/actuation HFA aerosol inhaler 2 puff INHALATION Q4-6H PRN (Reason: shortness of breath or wheezing) Qty: 6.7 6RF Rx Instructions: 2 puffs inhaled every 4 hours as needed levothyroxine 75 mcg tablet 75 mcg PO DAILY Qty: 90 1RF Rx Instructions: Take 1 tablet by mouth will on an empty stomach daily 30 minutes prior to eating. acetaminophen 325 mg capsule 650 mg PO DAILY Qty: 180 1RF Rx Instructions: Take 2 tabs by mouth routinely each morning, NTE 3 grams in 24 hours total acetaminophen 325 mg capsule 650 mg PO Q4H PRN (Reason: pain) Label Comments: NTE 3 grams total in 24 hours Disabled Parking Permit See Rx Instructions .ROUTE .COMPLEX Qty: 1 0RF Rx Instructions: I find this patient to be medically disabled and qualify for disabled parking as indicated and signed on the accompanying disabled parking application for individuals. docusate sodium [Colace] 100 mg capsule 100 mg PO DAILY Qty: 90 3RF Rx Instructions: HOLD FOR DIARRHEA quetiapine [Seroquel] 25 mg tablet 25 mg PO BID Qty: 60 11RF Referrals: Yvette Jones ARNP [Primary Care Provider] - Visit Report Forms: Patient Portal/API
[2021-11-28] MEDS: LIDOCAINE 2% W/EPI INJ 5 ML INJ (11:14)
--- NOTE | 2021-11-28 11:48 | PC.NURSE ---
Removed pulse ox r/t pt attempting to place it in her mouth, educated pt on device and moved out of reach.
[2021-11-28 12:07] VITALS: BP 163/80; PULSE 75; RESP 14; O2SAT 99
== END 2021-11-28 12:09 | disposition home or self-care (01) ==
PROVIDERS: Emergency Provider Emergency Medicine; PCP Nurse Practitioner
DX: S01.111A Laceration without foreign body of right eyelid and periocular area, initial encounter (principal); S09.90XA Unspecified injury of head, initial encounter; W05.0XXA Fall from non-moving wheelchair, initial encounter
CPT/HCPCS: 12011; 70450; 72125; 93005; 99283; 99284